=== PATIENT | male | born 1965 | race Caucasian/White ===

== ENCOUNTER 2017-06-07 22:09 | Emergency (ER) | payer SELFPAY ==
[2017-06-07] MEDS ORDERED: LIDOCAINE 1% INJ-PF (10 MG/ML) 30 ML SDV INJ ONE ×2 (22:18→23:31)
[2017-06-07] MEDS ORDERED: TETANUS/DIPHTHERIA TOX-ADULT 0.5 ML SYR (>=7YO) IM ONE (22:18)
--- NOTE | 2017-06-07 22:18 | ER Document Report ---
Addendum entered and electronically signed by MURRYA KHAN 06/08/17 01:14: Past Medical History - General Information source: Patient - Social History Smoking Status: Current Every Day Smoker Cigarette use (# per day): Yes Frequency of alcohol use: None Drug Abuse: None Lives with: Family Family History: Reviewed & Not Pertinent - Medical History Medical History: Negative Surgical Hx: Negative Review of Systems - Review of Systems Constitutional: No symptoms reported EENT: See HPI, Eye pain Cardiovascular: No symptoms reported Respiratory: No symptoms reported Gastrointestinal: No symptoms reported Genitourinary: No symptoms reported Male Genitourinary: No symptoms reported Musculoskeletal: No symptoms reported Skin: No symptoms reported Hematologic/Lymphatic: No symptoms reported Neurological/Psychological: See HPI, Headaches. denies: Lost consciousness -: Yes All other systems reviewed and negative Physical Exam - Vital signs Vitals: Temp Pulse Resp BP Pulse Ox 98.4 F 113 H 18 149/92 H 95 06/07/17 22:06/07/17 22:06/07/17 22:06/07/17 22:06/07/17 22:17 - Notes Notes: Physical Exam: General: Alert, appears intoxicated. HEENT: Normocephalic. PERRL. Extraocular movements intact. Oropharynx clear. Deep, wide, gaping 2cm laceration superior to left orbit. Left sided scleral hematoma. Neck: Supple. Non-tender. Respiratory: No respiratory distress. Clear and equal breath sounds bilaterally. Cardiovascular: Regular rate and rhythm. Abdominal: Normal Inspection. Non-tender. No distension. Normal Bowel Sounds. Back: Non-tender. No deformity or step off. Extremities: Moves all four extremities. Upper extremities: Normal inspection. Normal ROM. Lower extremities: Normal inspection. No edema. Normal ROM. Neurological: Normal cognition. AAOx4. Normal speech. Psychological: Normal affect. Normal Mood. Skin: Warm. Dry. Normal color. Addendum entered and electronically signed by MURRAY KHAN 06/08/17 00:22: History of Present Illiness - HPI Note: Patient is a 52-year-old male who presents to the emergency department today secondary to falling episodes. Patient states that he drank a few beers prior to this and he was walking outside to use the restroom when he fell because he did not think the threshold was as big as it was and he hit his head on some brick stairs. Patient states he felt "woozy" when standing up. Patient has a laceration above his left eyebrow. Patient denies any LOC. Original Note: ED General - General Stated Complaint: FALL HEAD LACERATION Time Seen by Provider: 06/07/17 22:16 - Related Data Allergies/Adverse Reactions: quetiapine [From Seroquel] Allergy (Verified 06/07/17 22:20) Past Medical History - Social History Smoking Status: Never Smoker Family History: Reviewed & Not Pertinent - Vital signs Vitals: Temp Pulse Resp BP Pulse Ox 98.4 F 113 H 18 149/92 H 95 06/07/17 22:17 06/07/17 22:17 06/07/17 22:17 06/07/17 22:17 06/07/17 22:17 - Vital Signs Vital signs: Temp Pulse Resp BP Pulse Ox 98.3 F 84 18 132/84 H 99 06/08/17 02:17 06/08/17 02:17 06/08/17 02:17 06/08/17 02:17 06/08/17 02:17 Procedures - Laceration/Wound Repair Left Face Time completed: 12:00 - Joe Montoya PA-C Wound length (cm): 2 Wound's Depth, Shape: Superficial, Linear Laceration pre-procedure: Sterile PPE donned, Sterile drapes applied, Other - chlorhexadine Anesthetic type: 1% Lidocaine Volume Anesthetic (mLs): 4 Wound explored: Clean, No foreign body removed Irrigated w/ Saline (mLs): 30 Wound Debrided: Minimal Wound Repaired With: Sutures Suture Size/Type: 6:0, Nylon Number of Sutures: 6 Layer Closure?: No Post-procedure wound care: Sterile dressing applied Post-procedure NV exam normal: Yes Complications: No Discharge - Discharge Clinical Impression: Fall, 5.0 cm left eyebrow laceration, Displaced closed maxillary fracture Condition: Stable Disposition: HOME, SELF-CARE Additional Instructions: Laceration Care Your laceration has been sutured to keep the skin edges aligned during healing. The time of suture removal depends on the nature and location of your cut. Please follow the care instructions the doctor has outlined for you and return for further care, according to the schedule you've been given. Keep the wound and dressing clean. Unless you were told otherwise, you may shower daily, blotting the wound dry with a clean, unused towel. At other times, If the dressing gets wet or blood soaked, remove it and blot the wound dry, then reapply a new dressing. Unless you were instructed otherwise, dressings should be changed at least daily. If any signs of infection occur (swelling, redness, increasing tenderness, red streaks, tender lumps in the armpit or groin above the laceration, or fever) , see the doctor immediately. Fracture maxilla You have a fracture. The typical broken bone requires only protection and sufficient time for healing. "Setting" is necessary only if the bones are crooked or out of position. The physician will re-assess you periodically to make certain that the bone heals without complications. It's important that you follow the instructions given you. The initial treatment is immobilization, elevation of the injury, and cold packs. Not all fractures require a cast. Depending on the location and type of fracture, immobilization may consist of a splint, cast, sling, bulky dressing , or simply rest. The length of time required for healing depends on the location and type of fracture, and on the age of the patient. The treatment plan the physician has outlined for you is customized to your fracture and health condition. Call the doctor or return at once if pain becomes severe, or if severe swelling or numbness develop. I have contacted an ear nose and throat doctor at [facility] in [place] who states that he will see you in follow-up. You are to call the office at [phone] on Saturday to be seen in follow-up on Saturday. Their address is [address] [place] [address] return to emergency department sooner for increasing worsening or new symptoms Scribe Attestation: 06/08/17 01:39 I personally performed the services described in the documentation reviewed the documentation recorded by my scribe in my presence and it accurately and completely records my words and actions (NED HENRIQUEZ)
--- NOTE | 2017-06-07 22:56 | RADIOLOGY REPORT (SQ) ---
EXAM DESCRIPTION: CT HEAD WITHOUT COMPLETED DATE/TIME: 06/07/2017 10:48 pm REASON FOR STUDY: fall etoh COMPARISON: None. TECHNIQUE: Axial images acquired through the brain without intravenous contrast. Images reviewed wi th bone, brain and subdural windows. Images stored on PACS. All CT scanners at this facility use dose modulation, iterative reconstruction, and/or weight based d osing when appropriate to reduce radiation dose to as low as reasonably achievable (ALARA). [facility]: Dose Right [facility]: CareDose [facility]: Dose Right [facility]: Teradose 4D [facility]: Your Policy Manager RADIATION DOSE: mGy. LIMITATIONS: None. FINDINGS: VENTRICLES: Normal size and contour. CEREBRUM: No masses. No hemorrhage. No midline shift. No evidence for acute infarction. Normal gra y/white matter differentiation. No areas of low density in the white matter. CEREBELLUM: No masses. No hemorrhage. No alteration of density. No evidence for acute infarction. EXTRAAXIAL SPACES: No fluid collections. No masses. ORBITS AND GLOBE: No intra- or extraconal masses. Normal contour of globe without masses. CALVARIUM: No fracture. PARANASAL SINUSES: Diffuse paranasal sinus mucosal thickening most notably involving the ethmoid and maxillary sinuses. No air-fluid levels. SOFT TISSUES: No mass or hematoma. OTHER: No other significant finding. IMPRESSION: CHRONIC PARANASAL SINUS DISEASE. OTHERWISE UNREMARKABLE NONCONTRAST CT HEAD. COMMENT: Quality ID # 436: Final reports with documentation of one or more dose reduction techniques (e.g., Automated exposure control, adjustment of the mA and/or kV according to patient size, use of iterative reconstruction technique) TECHNICAL DOCUMENTATION: JOB ID: [id number] [employer]- All Rights Reserved
--- NOTE | 2017-06-07 23:15 | RADIOLOGY REPORT (SQ) ---
EXAM DESCRIPTION: CHEST PA/LAT COMPLETED DATE/TIME: 06/07/2017 11:04 pm REASON FOR STUDY: fall COMPARISON: None. EXAM PARAMETERS: NUMBER OF VIEWS: two views TECHNIQUE: Digital Frontal and Lateral radiographic views of the chest acquired. RADIATION DOSE: NA LIMITATIONS: none FINDINGS: LUNGS AND PLEURA: No opacities, masses or pneumothorax. No pleural effusion. MEDIASTINUM AND HILAR STRUCTURES: No masses or contour abnormalities. HEART AND VASCULAR STRUCTURES: Heart normal size. No evidence for failure. BONES: No acute findings. HARDWARE: None in the chest. OTHER: No other significant finding. IMPRESSION: NO SIGNIFICANT RADIOGRAPHIC FINDING IN THE CHEST. TECHNICAL DOCUMENTATION: JOB ID: [id number] [employer]- All Rights Reserved
--- NOTE | 2017-06-07 23:17 | RADIOLOGY REPORT (SQ) ---
EXAM DESCRIPTION: CT CERVICAL SPINE WITHOUT COMPLETED DATE/TIME: 06/07/2017 10:57 pm REASON FOR STUDY: fall etoh COMPARISON: None. TECHNIQUE: Axial images acquired through the cervical spine without intravenous contrast. Images re viewed with lung, soft tissue and bone windows. Reconstructed coronal and sagittal MPR images review ed. Images stored on PACS. All CT scanners at this facility use dose modulation, iterative reconstruction, and/or weight based d osing when appropriate to reduce radiation dose to as low as reasonably achievable (ALARA). [facility]: Dose Right [facility]: CareDose [facility]: Dose Right [facility]: Teradose 4D [facility]: [employer] RADIATION DOSE: Up-to-date CT equipment and radiation dose reduction techniques were employed. CTDIv ol: 17.4 mGy. DLP: 396 mGy-cm. mGy. LIMITATIONS: None. FINDINGS: ALIGNMENT: Anatomic. MINERALIZATION: Normal. VERTEBRAL BODIES: No fractures or dislocation. DISCS: Multilevel disc space narrowing with osteophytes. FACETS, LATERAL MASSES, POSTERIOR ELEMENTS: Facet arthropathy. No fractures. No dislocation. No ac [place] findings. HARDWARE: None in the spine. VISUALIZED RIBS: No fractures. LUNG APICES AND SOFT TISSUES: No significant or acute findings. OTHER: No other significant finding. IMPRESSION: CHRONIC DEGENERATIVE CHANGES. NO ACUTE FINDINGS. TECHNICAL DOCUMENTATION: JOB ID: [id number] Quality ID # [id number]: Final reports with documentation of one or more dose reduction techniques (e.g., Au tomated exposure control, adjustment of the mA and/or kV according to patient size, use of iterative reconstruction technique) 2010 [employer]- All Rights Reserved
--- NOTE | 2017-06-07 23:21 | RADIOLOGY REPORT (SQ) ---
EXAM DESCRIPTION: CT FACIAL AREA WITHOUT COMPLETED DATE/TIME: 06/07/2017 10:57 pm REASON FOR STUDY: fall etoh COMPARISON: None. TECHNIQUE: Noncontrasted images through the facial bones and orbits windowed for bone and soft tissu e. Additional coronal and sagittal reconstructed images reviewed. All images stored on PACS. All CT scanners at this facility use dose modulation, iterative reconstruction, and/or weight based d osing when appropriate to reduce radiation dose to as low as reasonably achievable (ALARA). [facility]: Dose Right [facility]: CareDose [facility]: Dose Right [facility]: Teradose 4D [facility]: [employer] RADIATION DOSE: Up-to-date CT equipment and radiation dose reduction techniques were employed. CTDIv ol: 30.4 mGy. DLP: 589 mGy-cm. mGy. LIMITATIONS: None. FINDINGS: FACIAL BONES: Possible minimally displaced fracture involving the anterior wall the left m axillary sinus seen on series 4, image 39. Facial bone structures otherwise intact. ORBITS: Intact. No fracture. Symmetric intact globes and retroorbital soft tissues. PARANASAL SINUSES: Diffuse mucosal thickening with maxillary sinus mucous retention cyst versus polyp s. Occluded ostiomeatal complexes. SOFT TISSUES: Soft tissue swelling involving the left face and forehead. INFERIOR BRAIN: Limited view. No acute findings. OTHER: No other significant finding. IMPRESSION: POSSIBLE MINIMALLY DISPLACED FRACTURE INVOLVING THE ANTERIOR WALL THE LEFT MAXILLARY SIN US WITH OVERLYING SOFT TISSUE SWELLING. REMAINING FACIAL BONE STRUCTURES ARE INTACT. CHRONIC PARANASAL SINUS DISEASE. TECHNICAL DOCUMENTATION: JOB ID: [id number] Quality ID # [id number]: Final reports with documentation of one or more dose reduction techniques (e.g., Au tomated exposure control, adjustment of the mA and/or kV according to patient size, use of iterative reconstruction technique) 2010 [employer]- All Rights Reserved
[2017-06-08 02:20] VITALS: BP 132/84
== END 2017-06-08 02:22 | disposition home or self-care (01) ==
LOC: ER 22:09
PROC: 0HQ1XZZ Repair Face Skin, External Approach (ICD-10-PCS; principal; 2017-06-07)
DX: S02.401A Maxillary fracture, unspecified side, initial encounter for closed fracture (principal); S01.112A Laceration without foreign body of left eyelid and periocular area, initial encounter; W19.XXXA Unspecified fall, initial encounter; Y93.89 Activity, other specified; Z88.8 Allergy status to other drugs, medicaments and biological substances
CPT/HCPCS: 99284; 71020; 70450; 70486; 72125; 12011; J3490

== ENCOUNTER 2017-07-14 15:38 | Inpatient (IN) | payer SELFPAY ==
[2017-07-14 16:20] LABS: ABSOLUTE EOSINOPHILS # (AUTO) 0.1 10^3/uL (0.0-0.6); ABSOLUTE LYMPHOCYTES (AUTO) 1.2 10^3/uL (0.5-4.7); ABSOLUTE MONOCYTES (AUTO) 0.3 10^3/uL (0.1-1.4); BASOPHILS % (AUTO) 0.9 % (0-2); EOSINOPHILS % (AUTO) 2.4 % (0-6); HEMATOCRIT 40.5 % (37.9-51.0); HEMOGLOBIN 13.9 g/dL (13.5-17.0); HGB HCT DIFFERENCE 1.2; LYMPHOCYTES % (AUTO) 45.9 % (13-45); MEAN CORPUSCULAR HEMOGLOBIN 27.5 pg (27.0-33.4); MEAN CORPUSCULAR HGB CONC 34.4 g/dL (32.0-36.0); MEAN CORPUSCULAR VOLUME 80 fl (80-97); MONOCYTES % (AUTO) 11.8 % (3-13); RED BLOOD COUNT 5.07 10^6/uL (4.35-5.55); WHITE BLOOD COUNT 2.6 10^3/uL (4.0-10.5)
[2017-07-14 16:26] LABS: APPEARANCE,URINE CLEAR; BILIRUBIN,URINE NEGATIVE (NEGATIVE); GLUCOSE, URINE 150 mg/dL (NEGATIVE); KETONES,URINE NEGATIVE (NEGATIVE); LEUKOCYTE ESTERASE,URINE NEGATIVE (NEGATIVE); NITRITE,URINE NEGATIVE (NEGATIVE); PROTEIN,URINE 30 mg/dL (NEGATIVE); URINE SPECIFIC GRAVITY 1.019
[2017-07-14 16:40] LABS: ALANINE AMINOTRANSFERASE 73 U/L (21-72); ALBUMIN 3.3 g/dL (3.5-5.0); ALKALINE PHOSPHATASE 289 U/L (38-126); ANION GAP 14 (5-19); ASPARTATE AMINO TRANSFERASE 143 U/L (17-59); BILIRUBIN,DIRECT 1.9 mg/dL (0.0-0.4); BILIRUBIN,TOTAL 3.6 mg/dL (0.2-1.3); BLOOD UREA NITROGEN 7 mg/dL (7-20); CALCIUM 8.5 mg/dL (8.4-10.2); CARBON DIOXIDE 25 mmol/L (22-30); CHLORIDE 107 mmol/L (98-107); CREATININE RESULT 0.68 mg/dL (0.52-1.25); GLUCOSE 255 mg/dL (75-110); POTASSIUM 4.2 mmol/L (3.6-5.0); SODIUM 146.3 mmol/L (137-145)
[2017-07-14 16:49] LABS: URINE BARBITURATES SCREEN NEGATIVE; URINE METHADONE SCREEN NEGATIVE; URINE OPIATES LOW NEGATIVE; URINE PHENCYCLIDINE SCREEN NEGATIVE
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
--- NOTE | 2017-07-14 16:54 | EKG REPORT ---
SEVERITY:- ABNORMAL ECG - SINUS TACHYCARDIA PROBABLE LEFT ATRIAL ABNORMALITY LEFT VENTRICULAR HYPERTROPHY ANTERIOR ST ELEVATION, PROBABLY DUE TO LVH BORDERLINE PROLONGED QT INTERVAL : Confirmed by: Kristen De Leon MD 14-Jul-2017 16:54:13
[2017-07-14 16:56] LABS: ALCOHOL 322 mg/dL (NONE DETECTED)
--- NOTE | 2017-07-14 17:17 | ER Document Report ---
ED Substance Abuse / Acc. OD - General Mode of Arrival: Medic Information source: Patient <JAMISON MARSH - Last Filed: 07/14/17 19:28> <KATEKIRAROD - Last Filed: 07/15/17 06:20> - General Chief Complaint: ETOH Abuse Stated Complaint: DETOX Time Seen by Provider: 07/14/17 15:44 Notes: 52-year-old chronic daily alcoholic was drinking and sleeping at the [facility] in [facility] waiting for a bus to take him to [place]. He called EMS because he decided today that he needed to stop drinking alcohol. He is not depressed or suicidal. He is a known diabetic and does not take his diabetes medication. The last time he had liver enzymes in 2011 when he was incarcerated they were normal. He has no chest pain, shortness of breath , abdominal pain. No vomiting or diarrhea. No tremors. Stable walking and conversing, eating meal. (JAMISON MARSH) - Related Data Allergies/Adverse Reactions: quetiapine [From Seroquel] Allergy (Verified 06/07/17 22:20) Past Medical History - General Information source: Patient, [facility] Records - Social History Smoking Status: Current Every Day Smoker Chew tobacco use (# tins/day): No Frequency of alcohol use: Heavy Drug Abuse: None Family History: Reviewed & Not Pertinent - Past Medical History Cardiac Medical History: Reports: Hx Hypertension Past Surgical History: Reports: Hx Abdominal Surgery, Hx Orthopedic Surgery - Knee <JAMISON MARSH - Last Filed: 07/14/17 19:28> Review of Systems - Review of Systems Constitutional: No symptoms reported EENT: No symptoms reported Cardiovascular: No symptoms reported Respiratory: No symptoms reported Gastrointestinal: No symptoms reported Genitourinary: No symptoms reported Male Genitourinary: No symptoms reported Musculoskeletal: No symptoms reported Skin: No symptoms reported Hematologic/Lymphatic: No symptoms reported Neurological/Psychological: See HPI <JAMISON MARSH - Last Filed: 07/14/17 19:28> Physical Exam - Vital signs Interpretation: Normal - General General appearance: Appears well, Alert - HEENT Head: Normocephalic, Atraumatic Eyes: Normal. No: Scleral icterus Conjunctiva: Injected Pupils: PERRL Neck: Supple. No: Lymphadenopathy - Respiratory Respiratory status: No respiratory distress Chest status: Nontender Breath sounds: Normal Chest palpation: Normal - Cardiovascular Rhythm: Regular Heart sounds: Normal auscultation Murmur: No - Abdominal Inspection: Normal Distension: No distension Bowel sounds: Normal Tenderness: Nontender. No: Tender Organomegaly: No organomegaly. No: Hepatomegaly - Back Back: Normal, Nontender. No: CVA tenderness - Extremities General upper extremity: Normal inspection, Nontender, Normal color, Normal ROM , Normal temperature General lower extremity: Normal inspection, Nontender, Normal color, Normal ROM , Normal temperature, Normal weight bearing. No: Figueroa's sign - Neurological Neuro grossly intact: Yes Cognition: Normal Orientation: AAOx4 [place] Coma Scale Eye Opening: Spontaneous [place] Coma Scale Verbal: Oriented [place] Coma Scale Motor: Obeys Commands [place] Coma Scale Total: 15 Speech: Normal Motor strength normal: LUE, RUE, LLE, RLE Sensory: Normal - Psychological Associated symptoms: Normal affect, Normal mood - Skin Skin Temperature: Warm Skin Moisture: Dry Skin Color: Normal Skin irregularity: negative: Rash <JAMISON MARSH - Last Filed: 07/14/17 19:28> - Vital signs Vitals: Temp Pulse Resp 98.8 F 110 H 20 07/14/17 15:47 07/14/17 15:47 07/14/17 15:47 Course - Laboratory Result Diagrams: 07/14/17 16:00 07/14/17 16:00 <JAMISON MARSH - Last Filed: 07/14/17 19:28> - Laboratory Result Diagrams: 07/14/17 16:00 07/14/17 16:00 <ROD LOVE - Last Filed: 07/15/17 06:20> - Re-evaluation Re-evalutation: 07/14/17 17:16 pt seen by Azucena from [facility], [facility] in [place] has no beds for detox today. Pt can call mobile crisis or walk in port in the [facility]. Pt states he is suypposed to take depression medication and DM2 meds. He wants to catch a bus to [place] to see his daughter and get off alcohol again. He is not suicidal. 07/14/17 17:[address] blackwell, pt has to stay in ER until ETOH is 80, redraw the etoh level at 0400, keep to am since he is homeless with ativan PRN 07/14/17 18:07 pt is willing to stay in the ER during the night, starting to have some tremors ativan 1mg ordered and q2hp. saline lock in place. will transfer care to Rod SABA at 1900. 07/14/17 19:28 care transferred to Rod SABA> (JAMISON MARSH) 07/14/17 23:39 When I was introduced to patient he did state that he has gone "cold turkey" without difficulty. Patient reevaluated again, sleeping peacefully. Blood draw is still pending, vital signs unremarkable, patient is not tachycardic on my exam. Patient vomited, QT prolongation was noted on EKG, he was given a dose of Ativan IV, he is slightly tremulous, patient will be placed on a monitor. Concerned that he might be developing bad withdrawal symptoms. Patient has now become tachycardic, I reevaluated him at bedside and he is becoming slightly delirious, patient be given thiamine, he will require admission. Discussed with Dr. Guaman, will give 20 mg valium PO. Called and spoke with Dr. Barnett, internal medicine, patient will be admitted to the ICU. (ROD LOVE) - Vital Signs Vital signs: Temp Pulse Resp BP Pulse Ox 98.0 F 109 H 18 152/100 H 97 07/15/17 05:51 07/15/17 05:51 07/15/17 05:51 07/15/17 05:51 07/15/17 05:51 - Laboratory Laboratory results interpreted by me: 07/14/17 07/14/17 07/14/17 16:00 16:00 16:00 WBC 2.6 L RDW 19.0 H Plt Count 67 L Seg Neutrophils % 39.0 L Lymphocytes % 45.9 H Absolute Neutrophils 1.0 L Sodium 146.3 H Glucose 255 H Total Bilirubin 3.6 H Direct Bilirubin 1.9 H AST 143 H ALT 73 H Alkaline Phosphatase 289 H Albumin 3.3 L Urine Protein 30 H Urine Glucose (UA) 150 H Urine Blood MODERATE H Urine Urobilinogen 4.0 H Salicylates < 1.0 L Acetaminophen < 10 L Serum Alcohol 322 H* Discharge <JAMISON MARSH - Last Filed: 07/14/17 19:28> - Discharge Admitting Provider: Hospitalist Unit Admitted: ICU <ROD LOVE - Last Filed: 07/15/17 06:20> - Discharge Clinical Impression: Hyperglycemia, Alcoholism Alcohol intoxication Qualifiers: Complication of substance-induced condition: with unspecified complication Qualified Code(s): F10.929 - Alcohol use, unspecified with intoxication, unspecified Condition: Serious Disposition: ADMITTED INPATIENT
[2017-07-14] MEDS ORDERED: LORAZEPAM 1 MG TABLET PO PRN ×2 (17:45→18:06)
[2017-07-14] MEDS ORDERED: LORAZEPAM 1 MG TABLET PO ONE ×2 (18:05→18:51)
[2017-07-15] MEDS ORDERED: LORAZEPAM INJ 2 MG/1 ML VIAL IV ONE ×2 (00:24→01:25)
[2017-07-15] MEDS ORDERED: DIAZEPAM 5 MG TABLET PO ONE ×2 (05:47→08:15)
[2017-07-15] MEDS ORDERED: THIAMINE HCL 100 MG in NORMAL SALINE 50 ML IV ONE (05:48)
[2017-07-15] MEDS ORDERED: NORMAL SALINE 1000 ML 1,000 ML IV ONE (05:48)
[2017-07-15 06:08] LABS: ADD ON TESTING BLD IN LAB ACKNOWLEDGE
[2017-07-15 06:26] LABS: PROTHROMBIN TIME 16.5 SEC (11.4-15.4)
[2017-07-15 06:27] LABS: PARTIAL THROMBOPLASTIN TIME 40.1 SEC (23.5-35.8)
[2017-07-15] MEDS ORDERED: THIAMINE HCL INJ 200 MG/2 ML VIAL ONE (06:32)
[2017-07-15 06:36] LABS: MAGNESIUM 1.7 mg/dL (1.6-2.3)
[2017-07-15 06:37] LABS: HEMATOCRIT 40.7 % (37.9-51.0); HEMOGLOBIN 13.9 g/dL (13.5-17.0); MEAN CORPUSCULAR HEMOGLOBIN 27.5 pg (27.0-33.4); MEAN CORPUSCULAR HGB CONC 34.2 g/dL (32.0-36.0); MEAN CORPUSCULAR VOLUME 81 fl (80-97); RED BLOOD COUNT 5.06 10^6/uL (4.35-5.55)
[2017-07-15 06:45] LABS: ALANINE AMINOTRANSFERASE 79 U/L (21-72); ALBUMIN 3.6 g/dL (3.5-5.0); ALKALINE PHOSPHATASE 365 U/L (38-126); ANION GAP 13 (5-19); ASPARTATE AMINO TRANSFERASE 145 U/L (17-59); BILIRUBIN,TOTAL 3.8 mg/dL (0.2-1.3); BLOOD UREA NITROGEN 8 mg/dL (7-20); CALCIUM 8.6 mg/dL (8.4-10.2); CARBON DIOXIDE 25 mmol/L (22-30); CHLORIDE 107 mmol/L (98-107); CREATININE RESULT 0.59 mg/dL (0.52-1.25); GLUCOSE 167 mg/dL (75-110); POTASSIUM 3.6 mmol/L (3.6-5.0); SODIUM 144.9 mmol/L (137-145); TOTAL PROTEIN 7.5 g/dL (6.3-8.2)
[2017-07-15] MEDS ORDERED: DEXTROSE 50%-WATER 25 GM/50 ML DISP.SYRIN IV PRN ×2 (07:32)
[2017-07-15] MEDS ORDERED: GLUCAGON,HUMAN RECOMB 1 MG INJ IM PRN (07:32)
[2017-07-15] MEDS ORDERED: DEXTROSE 40% GEL 15 GM TUBE PO PRN ×2 (07:32)
[2017-07-15] MEDS ORDERED: ACETAMINOPHEN 650 MG SUPP.RECT PR PRN (07:34)
[2017-07-15 07:37] LABS: BASOPHILS % (MANUAL) 0 % (0-2); EOSINOPHILS % (MANUAL) 2 % (0-6); LYMPHOCYTES % (MANUAL) 24 % (13-45); TOTAL CELLS COUNTED 50
[2017-07-15 07:38] LABS: ANISOCYTOSIS 2+; MICROCYTOSIS SLIGHT
[2017-07-15 07:40] LABS: WHITE BLOOD COUNT 1.8 10^3/uL (4.0-10.5)
--- NOTE | 2017-07-15 07:41 | RADIOLOGY REPORT (SQ) ---
EXAM: NONCONTRAST BRAIN CT EXAMINATION. CLINICAL INDICATION: Left head injury. Left scalp abrasion. Intoxicated. COMPARISON: None. TECHNIQUE: Using low dose helical CT technique, thin section axial images were performed through the brain without the administration of intravenous or subarachnoid contrast material. FINDINGS: Motion artifact degrades fine evaluation of the brainstem and cerebellum. Left scalp hematoma without underlying fracture or associated radiopaque soft tissue foreign bodies. Brain volume appears normal. No diffuse brain swelling or brain herniation. No hydrocephalus. No subdural or epidural hematomas. No large subacute brain infarction. No parenchymal brain hemorrhage or evidence of intracranial mass lesion. Cerebral white matter is grossly normal. Caudate heads, lentiform nuclei, thalami and internal capsules are normal. Bones of the skull and skull base are normal. The middle ears and mastoid air cells are clear. Moderate chronic ethmoid, maxillary sphenoid and frontal sinusitis without extension into the orbits or skull. IMPRESSION: 1. Moderate chronic pansinusitis. Otherwise, normal noncontrast brain CT examination.
--- NOTE | 2017-07-15 07:44 | RADIOLOGY REPORT (SQ) ---
EXAM: NONCONTRAST CERVICAL SPINE CT EXAMINATION. CLINICAL INDICATION: Injury. Intoxicated. COMPARISON: None. TECHNIQUE: Using low-dose helical technique, thin section axial images were performed through the cervical spine without the administration of intravenous or subarachnoid contrast material. CT sagittal coronal reconstructions were also obtained. FINDINGS: Multilevel degenerative disease throughout the cervical spine in the preodontoid space. Partially visualized severe atherosclerotic calcification in the downstream vertebral arteries. No fractures, spondylolisthesis or facet joint dislocation. No hemorrhage in the spinal canal. Precervical soft tissue thickness is normal. The odontoid process, preodontoid space and C1 vertebral body are intact. The occipital condyles are intact. Partially visualized bony structures of the skull base appear normal. Concentric atherosclerotic calcifications in the bilateral carotid bulbs. Soft tissue structures of the neck are grossly normal on this noncontrast examination. IMPRESSION: 1. Multilevel degenerative disease. No fractures or dislocations.
[2017-07-15] MEDS ORDERED: ENALAPRILAT DIHYDRATE INJ/PF 1.25 MG/1 ML SDV IV PRN (07:49)
[2017-07-15] MEDS ORDERED: POTASSI CL 20 MEQ/50 ML RIDER 20 MEQ/50 ML RTUPB IV ONE (08:00)
--- NOTE | 2017-07-15 08:01 | PDOC H&P ---
History of Present Illness Admission Date/PCP: 07/15/17 06:19 Primary CARE provider none Patient complains of: Alcoholism History of Present Illness: GUERA MENDEZ is a 52 year old reportedly homeless male with ongoing alcohol abuse who was actually initially seen in the emergency room the afternoon of the and noted to be acutely intoxicated. Patient has been discussed with emergency room PA who evaluated the patient. Patient is sedated from medication treating his alcohol withdrawal symptoms and is able to provide no history whatsoever in terms of acute or chronic events, review of systems, personal habits, family history, etc. No friends or family are present. No old inpatient records available for review. Patient was reportedly in [facility] waiting for a bus to take him to family in [place]. Called EMS, deciding that yesterday he was going to stop drinking. Initial plans by the ER staff were to let his serum alcohol wear off and then discharge him. However, early this morning, patient began exhibiting katarzyna withdrawal symptoms and decision was made to contact the hospitalist service for admission. When first seen in the emergency room, he denied chest pain shortness of breath abdominal pain, vomiting or diarrhea. He was noted to be stable walking and conversing, and eating a meal without tremors. No further information available this point in time. Dictation via voice recognition software. Laboratory results are listed in [employer] and are reviewed. X-ray summary results are listed below, with full report(s) reviewed. EKG reviewed. No prior EKG available for comparison. Social history/personal habits: Reportedly homeless, with a current every day smoking habit, and heavy alcohol use. Reportedly no drug abuse. Information from ER records. No further information available this point in time. Allergies/adverse reactions are listed in [employer] and are reviewed. Home medications initially autopopulated into [employer] may not accurately reflect patient's true medications, dosages, and/or frequencies. refractory technician to reconcile medications. Unfortunately, patient not able to provide any information related to medications/dosages/frequencies. REVIEW OF SYSTEMS: See history and present illness. No further information available this point in time. PHYSICAL EXAMINATION: 6 feet tall. 104.5 kg. BMI 31.2 kg/m. Temperature 98. Pulse 109 and regular. Blood pressure 155/100. Respirations are 14 and unlabored. 98% saturation on room air. Slightly obese but also somewhat stocky, somewhat chronically ill-appearing male who appears a bit older than his stated age. Somnolent. Makes very brief slight attempt to open eyes when name is called, but otherwise remains asleep. Maintaining airway well. Received sedation short time ago. Observed ambulating in the halls earlier in the morning. Skin is warm and dry. No grossly obvious evidence of rash in areas of skin examined. No subcutaneous nodules palpated. Tattoos. ENT: Hearing difficult to adequately evaluate due to his current status. No vences sign. Approximately a 2 x 4 cm superficial abrasion, left frontal scalp. Appears acute. No active bleeding. No evidence of infection. Eyes: No scleral icterus. Pupils equal and reactive to light at 4 mm. [place] conjunctivae. No raccoon eyes. Neck is nontender to palpation. Midline trachea. No palpable thyroid nodule mass enlargement or tenderness. Lymphatic: No palpable cervical or clavicular nodes. Neck and lymphatic exams limited by patient body habitus. Psychiatric: Not able to adequately evaluate due to his current status. See above comments. Lungs: Auscultation reveals clear and equal breath sounds bilaterally. No use of accessory respiratory muscles. Cardiovascular: Heart regular rate and rhythm, without gallop murmur or rub. No carotid or abdominal aortic bruits. No ankle or pedal edema. Palpable radial and dorsalis pedis pulses. Abdomen:soft slightly distended nontender with positive bowel sounds. Unable to adequately evaluate abdomen for masses or organomegaly due to distention. Extremities: Hands and feet are warm and dry. No calf tenderness to compression. No grossly obvious visual evidence of calf swelling. Gentle manipulation of upper and lower extremities fails to reveal any obvious evidence of injury or instability to involved major joints. Neuro: Cranial Nerves cannot be adequately evaluated due to his current status. Light touch cannot be adequately evaluated due to his current status. Does not follow request for basic testing of major muscle groups upper and lower extremities. Patellar reflexes absent. Absent Babinski. No nystagmus. No ankle clonus. Past Medical History Past Medical History: Information per ER records. Patient unable to provide any information himself. Cardiac Medical History: Reports: Hypertension Endocrine Medical History: Reports: Diabetes Mellitus Type 2 Psychiatric Medical History: Reports: Alcohol Dependency, Depression, Tobacco Dependency Past Surgical History Past Surgical History: Information per ER records. Patient unable to provide any information himself. Past Surgical History: Reports: Orthopedic Surgery - Knee Social History Information Source: Emergency [facility]nel, [facility], [facility]1983 Records Smoking Status: Current Every Day Smoker Frequency of Alcohol Use: Heavy - Advance Directive Resuscitation Status: Full Code Surrogate healthcare decision maker:: Uncertain at this point in time. Family History Family History: Reviewed & Not Pertinent Parental Family History Reviewed: No - Patient not able to provide any information. Children Family History Reviewed: No - Patient not able to provide any information. Sibling(s) Family History Reviewed.: No - Patient not able to provide any information. Medication/Allergy Home Medications: Ibuprofen [Motrin 800 mg Tablet] 800 mg PO QAM 07/16/17 Allergies/Adverse Reactions: quetiapine [From Seroquel] Allergy (Verified 06/07/17 22:20) Physical Exam Vital Signs: Temp Pulse Resp BP Pulse Ox 98.0 F 109 H 14 158/101 H 97 07/15/17 05:51 07/15/17 05:51 07/15/17 07:01 07/15/17 07:01 07/15/17 07:01 Results Laboratory Results: 07/15/17 06:20 Ammonia 100.1 H Impressions: Head CT 07/15/17 00:00 IMPRESSION: 1. Moderate chronic pansinusitis. Otherwise, normal noncontrast brain CT examination. Assessment & Plan - Diagnosis (1) Alcohol dependence with acute alcoholic intoxication and delirium Is this a current diagnosis for this admission?: Yes Plan: Alcohol withdrawal protocol, including parenteral Ativan, and daily banana bag. Dietary consult. With patient reportedly homeless, discharge planning consult also. Knee high SCDs for DVT prophylaxis; due to thrombocytopenia, will forego Lovenox or heparin at this point in time. Time spent in evaluation and management of patient: 58 critical care minutes. (2) Elevated LFTs Is this a current diagnosis for this admission?: Yes Plan: Follow-up chemistry. (3) Increased ammonia level Is this a current diagnosis for this admission?: Yes Plan: Lactulose enema every 6 hours. (4) Neutropenia Qualifiers: Neutropenia type: unspecified Qualified Code(s): D70.9 - Neutropenia, unspecified Is this a current diagnosis for this admission?: Yes Plan: Mild. Protective precautions. Follow-up CBC with differential. (5) Scalp abrasion Qualifiers: Encounter type: initial encounter Qualified Code(s): S00.01XA - Abrasion of scalp, initial encounter Is this a current diagnosis for this admission?: Yes Plan: CT scan of brain without contrast, along with CT scan of cervical spine without contrast. Hard cervical collar. C-spine precautions; logroll only. Above discussed with nursing staff, and orders entered into electronic health record. (6) Thrombocytopenia Is this a current diagnosis for this admission?: Yes Plan: Likely secondary to his alcohol abuse. Follow-up CBC with differential. (7) Diabetes mellitus type 2 in obese Is this a current diagnosis for this admission?: Yes Plan: N.p.o. at the present time. Accu-Cheks with appropriate sliding scale coverage. Resume home medications as appropriate once these have been determined and reviewed. - Time Critical Time spent with patient: 35 or more minutes Medications reviewed and adjusted accordingly: No - Patient not able to provide any information. Anticipated discharge: Other Within: Other - Inpatient Certification Based on my medical assessment, after consideration of the patient's comorbidities, presenting symptoms, or acuity I expect that the services needed warrant INPATIENT care.: Yes I certify that my determination is in accordance with my understanding of Medicare's requirements for reasonable and necessary INPATIENT services [42 CFR 412.3e].: Yes Medical Necessity: Significant Comorbidiites Make Outpatient Treatment Too Risky , Need Close Monitoring Due to Risk of Patient Decompensation, Need For IV Fluids, Need For Continuous Telemetry Monitoring, Risk of Complication if Not Cared For in Hospital, Risk of Diagnosis Which Will Require Inpatient Eval/Care/ Monitoring Post Hospital Care: D/C or Transfer Summary
[2017-07-15] MEDS ORDERED: LISINOPRIL 10 MG TABLET PO ONE ×2 (08:15→12:00)
--- NOTE | 2017-07-15 08:29 | RADIOLOGY REPORT (SQ) ---
EXAM DESCRIPTION: CHEST SINGLE VIEW COMPLETED DATE/TIME: 07/15/2017 8:17 am REASON FOR STUDY: alcohol withdrawal COMPARISON: None. EXAM PARAMETERS: NUMBER OF VIEWS: One view. TECHNIQUE: Single frontal radiographic view of the chest acquired. RADIATION DOSE: NA LIMITATIONS: None. FINDINGS: LUNGS AND PLEURA: No opacities, masses or pneumothorax. No pleural effusion. MEDIASTINUM AND HILAR STRUCTURES: No masses. Contour normal. HEART AND VASCULAR STRUCTURES: Mild cardiomegaly. Normal vasculature. BONES: No acute findings. HARDWARE: None in the chest. OTHER: No other significant finding. IMPRESSION: NO ACUTE RADIOGRAPHIC FINDING IN THE CHEST. TECHNICAL DOCUMENTATION: JOB ID: [id number]
[2017-07-15] MEDS: NORMAL SALINE 1000 ML 1,000 ML IV PRN (08:42)
[2017-07-15] MEDS: MAGNESIUM SULFATE/D5W 1 GM/100 ML RTUPB IV SCH ×2 (08:48→11:47)
[2017-07-15 09:39] LABS: ADD HIVPANEL? NO; HIV (1 AND 2) ANTIBODY NEGATIVE (NEGATIVE)
[2017-07-15] MEDS ORDERED: LACTULOSE SYRUP 20 GM/30 ML UDCUP PR SCH (12:00)
[2017-07-15] MEDS: FOLIC ACID 1 MG TABLET PO SCH (12:02)
[2017-07-15] MEDS: DIAZEPAM 5 MG TABLET PO SCH ×2 (12:03→18:55)
[2017-07-15] MEDS: THIAMINE HCL 100 MG TABLET PO SCH (12:03)
[2017-07-15 14:14] LABS: PATH REVIEW PATHOLOGIST REVIEWED
[2017-07-15] MEDS ORDERED: MAGNESIUM SULFATE/D5W 1 GM/100 ML RTUPB IV ONE (15:00)
[2017-07-15] MEDS ORDERED: INFLUENZA ADLT QUAD (36MOS+) 2017-18 VAC 0.5 ML SYR IM PRN (16:35)
[2017-07-15] MEDS ORDERED: NORMAL SALINE 1000 ML 1,000 ML with THIAMINE HCL 100 MG, MVI, ADULT NO.1 WITH VIT K 10 ... IV SCH ×4 (18:00)
[2017-07-15] MEDS: LACTULOSE SYRUP 20 GM/30 ML UDCUP PO SCH (18:55)
[2017-07-15] MEDS: LISINOPRIL 10 MG TABLET PO SCH (21:37)
[2017-07-15] MEDS ORDERED: LORAZEPAM INJ 2 MG/1 ML VIAL (TAPER DOSING) IV SCH (22:00)
[2017-07-15] MEDS: LORAZEPAM INJ 2 MG/1 ML VIAL IV SCH (23:06)
[2017-07-16] MEDS: DIAZEPAM 5 MG TABLET PO SCH ×4 (00:24→18:37)
[2017-07-16] MEDS: LACTULOSE SYRUP 20 GM/30 ML UDCUP PO SCH ×4 (00:24→18:36)
[2017-07-16 05:12] LABS: ABSOLUTE EOSINOPHILS # (AUTO) 0.1 10^3/uL (0.0-0.6); ABSOLUTE LYMPHOCYTES (AUTO) 0.5 10^3/uL (0.5-4.7); ABSOLUTE MONOCYTES (AUTO) 0.3 10^3/uL (0.1-1.4); ABSOLUTE NEUT (AUTO) 1.2 10^3/uL (1.7-8.2); BASOPHILS % (AUTO) 0.3 % (0-2); EOSINOPHILS % (AUTO) 3.2 % (0-6); HEMATOCRIT 41.2 % (37.9-51.0); HEMOGLOBIN 13.9 g/dL (13.5-17.0); HGB HCT DIFFERENCE 0.5; LYMPHOCYTES % (AUTO) 25.2 % (13-45); MEAN CORPUSCULAR HEMOGLOBIN 27.1 pg (27.0-33.4); MEAN CORPUSCULAR HGB CONC 33.9 g/dL (32.0-36.0); MEAN CORPUSCULAR VOLUME 80 fl (80-97); MONOCYTES % (AUTO) 13.1 % (3-13); RED BLOOD COUNT 5.14 10^6/uL (4.35-5.55); RED CELL DISTRIBUTION WIDTH 19.3 % (11.5-14.0); SEGMENTED NEUTROPHILS % (AUTO) 58.2 % (42-78); WHITE BLOOD COUNT 2.1 10^3/uL (4.0-10.5)
[2017-07-16 05:13] LABS: PROTHROMBIN TIME 16.9 SEC (11.4-15.4)
[2017-07-16 05:21] LABS: ALANINE AMINOTRANSFERASE 75 U/L (21-72); ALBUMIN 3.2 g/dL (3.5-5.0); ALKALINE PHOSPHATASE 313 U/L (38-126); ANION GAP 9 (5-19); ASPARTATE AMINO TRANSFERASE 122 U/L (17-59); BILIRUBIN,DIRECT 2.9 mg/dL (0.0-0.4); BILIRUBIN,TOTAL 5.4 mg/dL (0.2-1.3); BLOOD UREA NITROGEN 8 mg/dL (7-20); CARBON DIOXIDE 22 mmol/L (22-30); CHLORIDE 110 mmol/L (98-107); CREATININE RESULT 0.52 mg/dL (0.52-1.25); GLUCOSE 124 mg/dL (75-110); POTASSIUM 4.3 mmol/L (3.6-5.0); SODIUM 140.5 mmol/L (137-145); TOTAL PROTEIN 7.1 g/dL (6.3-8.2)
[2017-07-16] MEDS: LORAZEPAM INJ 2 MG/1 ML VIAL IV SCH (05:52)
[2017-07-16] MEDS: FOLIC ACID 1 MG TABLET PO SCH (11:06)
[2017-07-16] MEDS: LISINOPRIL 10 MG TABLET PO SCH ×2 (11:06→21:35)
[2017-07-16] MEDS: THIAMINE HCL 100 MG TABLET PO SCH (11:07)
[2017-07-16] MEDS: NORMAL SALINE 1000 ML 1,000 ML IV PRN ×2 (12:58→21:36)
[2017-07-16] MEDS ORDERED: LORAZEPAM INJ 2 MG/1 ML VIAL IV SCH (16:00)
[2017-07-16] MEDS ORDERED: HYDRALAZINE HCL INJ/PF 20 MG/1 ML SDV IV PRN (17:07)
--- NOTE | 2017-07-16 17:22 | PDOC PROGRESS REPORT ---
Subjective Progress Note for:: 07/16/17 Subjective:: Pt seen resting in bed comfortable. He reports feeling hungry and is frustrated at not being allowed to eat. Otherwise, he has no questions or concerns today. He remains quite somnolent with slurred speech at times. He denies MOURA, dizziness, chest pain, dyspnea, abd pain, nausea, vomiting, diarrhea, and constipation. ROS is otherwise negative. Physical Exam Vital Signs: Temp Pulse Resp BP Pulse Ox 97.7 F 109 H 20 174/112 H 99 07/16/17 11:47 07/16/17 11:47 07/16/17 11:47 07/16/17 11:47 07/16/17 11:47 Intake & Output 07/15/17 07/16/17 07/17/17 06:59 06:59 06:59 Intake Total 850 Output Total 3300 200 Balance -2450 -200 Weight 94.6 kg General appearance: PRESENT: no acute distress, well-developed, well-nourished Head exam: PRESENT: atraumatic, normocephalic Eye exam: PRESENT: conjunctiva pink, EOMI, PERRLA. ABSENT: scleral icterus Ear exam: PRESENT: normal external ear exam Mouth exam: PRESENT: moist, tongue midline Neck exam: ABSENT: carotid bruit, JVD, lymphadenopathy, thyromegaly Respiratory exam: PRESENT: clear to auscultation michelle, symmetrical, unlabored. ABSENT: rales, rhonchi, wheezes Cardiovascular exam: PRESENT: RRR. ABSENT: diastolic murmur, rubs, systolic murmur Pulses: PRESENT: normal dorsalis pedis pul Vascular exam: PRESENT: normal capillary refill GI/Abdominal exam: PRESENT: normal bowel sounds, soft, other - distended. ABSENT: distended, firm, guarding, mass, organolmegaly, rebound, tenderness Rectal exam: PRESENT: deferred Extremities exam: PRESENT: full ROM. ABSENT: calf tenderness, clubbing, pedal edema Musculoskeletal exam: PRESENT: full ROM Neurological exam: PRESENT: oriented to person, oriented to place, oriented to time, oriented to situation, CN II-XII grossly intact, other - Somnolent though easily aroused, slurred speech. ABSENT: motor sensory deficit Psychiatric exam: PRESENT: appropriate affect, normal mood. ABSENT: homicidal ideation, suicidal ideation Skin exam: PRESENT: dry, intact, warm. ABSENT: cyanosis, rash Results Laboratory Results: 07/16/17 04:53 07/16/17 04:53 07/16/17 07/16/17 07/16/17 04:53 04:53 04:53 WBC 2.1 L RBC 5.14 Hgb 13.9 Hct 41.2 MCV 80 MCH 27.1 MCHC 33.9 RDW 19.3 H Plt Count 45 L Seg Neutrophils % 58.2 Lymphocytes % 25.2 Monocytes % 13.1 H Eosinophils % 3.2 Basophils % 0.3 Absolute Neutrophils 1.2 L Absolute Lymphocytes 0.5 Absolute Monocytes 0.3 Absolute Eosinophils 0.1 Absolute Basophils 0.0 Sodium 140.5 Potassium 4.3 Chloride 110 H Carbon Dioxide 22 Anion Gap 9 BUN 8 Creatinine 0.52 Est GFR ( Amer) > 60 Est GFR (Non-Af Amer) > 60 Glucose 124 H Calcium 9.0 Magnesium Total Bilirubin 5.4 H AST 122 H ALT 75 H Alkaline Phosphatase 313 H Ammonia 117.7 H Total Protein 7.1 Albumin 3.2 L 07/16/17 04:53 WBC RBC Hgb Hct MCV MCH MCHC RDW Plt Count Seg Neutrophils % Lymphocytes % Monocytes % Eosinophils % Basophils % Absolute Neutrophils Absolute Lymphocytes Absolute Monocytes Absolute Eosinophils Absolute Basophils Sodium Potassium Chloride Carbon Dioxide Anion Gap BUN Creatinine Est GFR ( Amer) Est GFR (Non-Af Amer) Glucose Calcium Magnesium 2.0 Total Bilirubin AST ALT Alkaline Phosphatase Ammonia Total Protein Albumin Impressions: Cervical Spine CT 07/15/17 00:00 IMPRESSION: 1. Multilevel degenerative disease. No fractures or dislocations. Chest X-Ray 07/15/17 00:00 IMPRESSION: NO ACUTE RADIOGRAPHIC FINDING IN THE CHEST. Head CT 07/15/17 00:00 IMPRESSION: 1. Moderate chronic pansinusitis. Otherwise, normal noncontrast brain CT examination. Assessment & Plan - Diagnosis (1) Alcohol dependence with acute alcoholic intoxication and delirium Is this a current diagnosis for this admission?: Yes Plan: 1- Alcohol withdrawal protocol: scheduled Valium with prn Ativan 2- Seizure and aspiration precautions 3- Daily multivitamin, thiamin, and banana bag 4- Appreciate RD consultation 5- Appreciate senior buyer planner assistance (2) Elevated LFTs Is this a current diagnosis for this admission?: Yes Plan: Acute hepatitis panel negative. HIV negative. Will monitor. (3) Increased ammonia level Is this a current diagnosis for this admission?: Yes Plan: 1- Lactulose q6 hours 2- Start on rifaximin 3- Monitor level (4) Neutropenia Qualifiers: Neutropenia type: unspecified Qualified Code(s): D70.9 - Neutropenia, unspecified Is this a current diagnosis for this admission?: Yes Plan: Likely secondary to ETOH abuse; WBC/Abs Neutrophils trending upward. Will monitor. (5) Scalp abrasion Qualifiers: Encounter type: initial encounter Qualified Code(s): S00.01XA - Abrasion of scalp, initial encounter Is this a current diagnosis for this admission?: Yes (6) Thrombocytopenia Is this a current diagnosis for this admission?: Yes Plan: Likely secondary to ETOH abuse. Will hold Lovenox/Heparin for now. Will monitor. Bleeding/fall precautions. (7) Diabetes mellitus type 2 in obese Is this a current diagnosis for this admission?: Yes Plan: Accuchecks with SSI. Is not on home medications for DM; consider necessity as approaching d/c. - Time Time Spent with patient: 25-34 minutes Medications reviewed and adjusted accordingly: Yes
[2017-07-16] MEDS: LORAZEPAM INJ 2 MG/1 ML VIAL IV PRN (21:36)
[2017-07-17] MEDS: DIAZEPAM 5 MG TABLET PO SCH ×5 (00:04→23:40)
[2017-07-17] MEDS: RIFAXIMIN 550 MG TABLET PO SCH ×3 (00:04→21:14)
[2017-07-17] MEDS: LACTULOSE SYRUP 20 GM/30 ML UDCUP PO SCH ×4 (00:05→21:13)
[2017-07-17 05:37] LABS: ABSOLUTE EOSINOPHILS # (AUTO) 0.1 10^3/uL (0.0-0.6); ABSOLUTE LYMPHOCYTES (AUTO) 0.6 10^3/uL (0.5-4.7); ABSOLUTE MONOCYTES (AUTO) 0.3 10^3/uL (0.1-1.4); ABSOLUTE NEUT (AUTO) 1.1 10^3/uL (1.7-8.2); BASOPHILS % (AUTO) 0.5 % (0-2); EOSINOPHILS % (AUTO) 4.3 % (0-6); HEMATOCRIT 41.3 % (37.9-51.0); HGB HCT DIFFERENCE 0.7; LYMPHOCYTES % (AUTO) 28.7 % (13-45); MEAN CORPUSCULAR HEMOGLOBIN 27.3 pg (27.0-33.4); MEAN CORPUSCULAR HGB CONC 33.9 g/dL (32.0-36.0); MEAN CORPUSCULAR VOLUME 80 fl (80-97); RED BLOOD COUNT 5.13 10^6/uL (4.35-5.55); RED CELL DISTRIBUTION WIDTH 19.1 % (11.5-14.0); SEGMENTED NEUTROPHILS % (AUTO) 50.5 % (42-78); WHITE BLOOD COUNT 2.1 10^3/uL (4.0-10.5)
[2017-07-17 05:53] LABS: ALANINE AMINOTRANSFERASE 72 U/L (21-72); ALBUMIN 2.9 g/dL (3.5-5.0); ALKALINE PHOSPHATASE 278 U/L (38-126); ANION GAP 11 (5-19); ASPARTATE AMINO TRANSFERASE 97 U/L (17-59); BILIRUBIN,DIRECT 2.6 mg/dL (0.0-0.4); BILIRUBIN,TOTAL 5.2 mg/dL (0.2-1.3); BLOOD UREA NITROGEN 7 mg/dL (7-20); CALCIUM 8.7 mg/dL (8.4-10.2); CARBON DIOXIDE 22 mmol/L (22-30); CHLORIDE 105 mmol/L (98-107); CREATININE RESULT 0.62 mg/dL (0.52-1.25); GLUCOSE 110 mg/dL (75-110); SODIUM 137.7 mmol/L (137-145); TOTAL PROTEIN 6.8 g/dL (6.3-8.2)
[2017-07-17] MEDS: NORMAL SALINE 1000 ML 1,000 ML IV PRN ×2 (06:37→23:20)
[2017-07-17] MEDS: THIAMINE HCL 100 MG TABLET PO SCH (10:22)
[2017-07-17] MEDS: LISINOPRIL 10 MG TABLET PO SCH ×2 (10:22→21:13)
[2017-07-17] MEDS: FOLIC ACID 1 MG TABLET PO SCH (10:22)
--- NOTE | 2017-07-17 13:53 | PDOC PROGRESS REPORT ---
Subjective Progress Note for:: 07/17/17 Subjective:: Pt seen resting in bed comfortable. He reports feeling much better today. He does c/o visual hallucinations described as moving lights and "yelling out" last night. He apologizes if he was disruptive and states he believes the IV pump was the source of his confusion. He also continues to be tremulous. He also c/o frequent loose stools, stating that he has 4-5 bowel movements overnight. He remains slightly drowsy with slurred speech at times, though improved from yesterday. He denies MOURA, dizziness, chest pain, dyspnea, abd pain, nausea, vomiting, and constipation. ROS is otherwise negative. Physical Exam Vital Signs: Temp Pulse Resp BP Pulse Ox 97.8 F 97 18 148/96 H 97 07/17/17 07:43 07/17/17 07:43 07/17/17 07:43 07/17/17 07:43 07/17/17 07:43 Intake & Output 07/16/17 07/17/17 07/18/17 06:59 06:59 06:59 Intake Total 850 4073 Output Total 3300 1450 Balance -2450 2623 Weight 94.6 kg 94.4 kg General appearance: PRESENT: no acute distress, well-developed, well-nourished Head exam: PRESENT: atraumatic, normocephalic Eye exam: PRESENT: conjunctiva pink, EOMI, PERRLA. ABSENT: scleral icterus Ear exam: PRESENT: normal external ear exam Mouth exam: PRESENT: moist, tongue midline Neck exam: ABSENT: carotid bruit, JVD, lymphadenopathy, thyromegaly Respiratory exam: PRESENT: clear to auscultation michelle. ABSENT: rales, rhonchi, wheezes Cardiovascular exam: PRESENT: RRR. ABSENT: diastolic murmur, rubs, systolic murmur Pulses: PRESENT: normal dorsalis pedis pul Vascular exam: PRESENT: normal capillary refill GI/Abdominal exam: PRESENT: normal bowel sounds, soft. ABSENT: distended, guarding, mass, organolmegaly, rebound, tenderness Rectal exam: PRESENT: deferred Extremities exam: PRESENT: full ROM. ABSENT: calf tenderness, clubbing, pedal edema Neurological exam: PRESENT: alert, awake, oriented to person, oriented to place , oriented to time, oriented to situation, CN II-XII grossly intact, other - Drowsy, slurred speech. Improved from yesterday.. ABSENT: motor sensory deficit Psychiatric exam: PRESENT: anxious, normal mood. ABSENT: homicidal ideation, suicidal ideation Focused psych exam: PRESENT: restlessness Skin exam: PRESENT: dry, intact, warm. ABSENT: cyanosis, rash Results Laboratory Results: 07/17/17 05:21 07/17/17 05:21 07/17/17 07/17/17 07/17/17 05:21 05:21 05:21 WBC 2.1 L RBC 5.13 Hgb 14.0 Hct 41.3 MCV 80 MCH 27.3 MCHC 33.9 RDW 19.1 H Plt Count 45 L Seg Neutrophils % 50.5 Lymphocytes % 28.7 Monocytes % 16.0 H Eosinophils % 4.3 Basophils % 0.5 Absolute Neutrophils 1.1 L Absolute Lymphocytes 0.6 Absolute Monocytes 0.3 Absolute Eosinophils 0.1 Absolute Basophils 0.0 Sodium 137.7 Potassium 4.0 Chloride 105 Carbon Dioxide 22 Anion Gap 11 BUN 7 Creatinine 0.62 Est GFR ( Amer) > 60 Est GFR (Non-Af Amer) > 60 Glucose 110 Calcium 8.7 Total Bilirubin 5.2 H AST 97 H ALT 72 Alkaline Phosphatase 278 H Ammonia 26.3 Total Protein 6.8 Albumin 2.9 L Impressions: Cervical Spine CT 07/15/17 00:00 IMPRESSION: 1. Multilevel degenerative disease. No fractures or dislocations. Chest X-Ray 07/15/17 00:00 IMPRESSION: NO ACUTE RADIOGRAPHIC FINDING IN THE CHEST. Head CT 07/15/17 00:00 IMPRESSION: 1. Moderate chronic pansinusitis. Otherwise, normal noncontrast brain CT examination. Assessment & Plan - Diagnosis (1) Alcohol dependence with acute alcoholic intoxication and delirium Is this a current diagnosis for this admission?: Yes Plan: 1- Alcohol withdrawal protocol: scheduled Valium with prn Ativan. PRN ativan required once overnight. Anticipate to begin weaning valium tomorrow. 2- Seizure and aspiration precautions 3- Daily multivitamin, thiamin, and banana bag 4- Appreciate RD consultation 5- Appreciate senior materials planner assistance 6- Will ask Psychiatry to reevaluate pt w/ regard to competency/safe discharge planning (2) Elevated LFTs Is this a current diagnosis for this admission?: Yes Plan: Acute hepatitis panel negative. HIV negative. LFTs trending down. Will continue to monitor. (3) Increased ammonia level Is this a current diagnosis for this admission?: Yes Plan: Resolved. Frequent loose stools overnight, will decrease lactulose w/ goal of 2-3 soft bm' s daily. 1- Lactulose q8 hours 2- Continue rifaximin (4) Neutropenia Qualifiers: Neutropenia type: unspecified Qualified Code(s): D70.9 - Neutropenia, unspecified Is this a current diagnosis for this admission?: Yes Plan: Likely secondary to ETOH abuse; WBC/Abs Neutrophils trending upward. Will monitor. (5) Thrombocytopenia Is this a current diagnosis for this admission?: Yes Plan: Likely secondary to ETOH abuse. Will hold Lovenox/Heparin for now. Will monitor. Bleeding/fall precautions. (6) Diabetes mellitus type 2 in obese Is this a current diagnosis for this admission?: Yes Plan: Accuchecks with SSI. Is not on home medications for DM; consider necessity as approaching d/c. 1- Will check A1C w/ morning labs (7) Hypertension Qualifiers: Hypertension type: essential hypertension Qualified Code(s): I10 - Essential (primary) hypertension Is this a current diagnosis for this admission?: Yes Plan: Hypertension may be exacerbated by EtOH withdrawal. 1- Continue lisinopril 20 mg BID 2- Will add HCTZ 12.5 mg BID (8) Scalp abrasion Qualifiers: Encounter type: initial encounter Qualified Code(s): S00.01XA - Abrasion of scalp, initial encounter Is this a current diagnosis for this admission?: Yes - Time Time Spent with patient: 35 or more minutes Medications reviewed and adjusted accordingly: Yes
[2017-07-17] MEDS: HYDROCHLOROTHIAZIDE 12.5 MG CAPSULE PO SCH (19:00)
[2017-07-17] MEDS ORDERED: LORAZEPAM INJ 2 MG/1 ML VIAL IV ONE (20:30)
[2017-07-17] MEDS ORDERED: LORAZEPAM INJ 2 MG/1 ML VIAL IV SCH (22:00)
[2017-07-18] MEDS: HYDROCHLOROTHIAZIDE 12.5 MG CAPSULE PO SCH ×2 (05:22→18:23)
[2017-07-18] MEDS: DIAZEPAM 5 MG TABLET PO SCH ×4 (05:23→23:20)
[2017-07-18] MEDS: LACTULOSE SYRUP 20 GM/30 ML UDCUP PO SCH ×3 (05:23→21:01)
[2017-07-18 06:09] LABS: ALANINE AMINOTRANSFERASE 67 U/L (21-72); ALKALINE PHOSPHATASE 328 U/L (38-126); ANION GAP 11 (5-19); ASPARTATE AMINO TRANSFERASE 100 U/L (17-59); BILIRUBIN,DIRECT 2.3 mg/dL (0.0-0.4); BILIRUBIN,TOTAL 3.9 mg/dL (0.2-1.3); BLOOD UREA NITROGEN 7 mg/dL (7-20); CALCIUM 9.2 mg/dL (8.4-10.2); CARBON DIOXIDE 24 mmol/L (22-30); CHLORIDE 104 mmol/L (98-107); CREATININE RESULT 0.64 mg/dL (0.52-1.25); GLUCOSE 137 mg/dL (75-110); POTASSIUM 3.8 mmol/L (3.6-5.0); SODIUM 138.5 mmol/L (137-145); TOTAL PROTEIN 6.8 g/dL (6.3-8.2)
[2017-07-18 06:11] LABS: HEMATOCRIT 41.8 % (37.9-51.0); HEMOGLOBIN 14.2 g/dL (13.5-17.0); HGB HCT DIFFERENCE 0.8; MEAN CORPUSCULAR HEMOGLOBIN 27.4 pg (27.0-33.4); MEAN CORPUSCULAR HGB CONC 33.9 g/dL (32.0-36.0); MEAN CORPUSCULAR VOLUME 81 fl (80-97); RED BLOOD COUNT 5.17 10^6/uL (4.35-5.55); RED CELL DISTRIBUTION WIDTH 19.1 % (11.5-14.0); WHITE BLOOD COUNT 1.9 10^3/uL (4.0-10.5)
[2017-07-18] MEDS: LORAZEPAM INJ 2 MG/1 ML VIAL IV PRN ×2 (07:38→21:02)
[2017-07-18] MEDS: NORMAL SALINE 1000 ML 1,000 ML IV PRN (07:38)
[2017-07-18] MEDS: LISINOPRIL 10 MG TABLET PO SCH ×2 (09:22→21:02)
[2017-07-18] MEDS: FOLIC ACID 1 MG TABLET PO SCH (09:22)
[2017-07-18] MEDS: THIAMINE HCL 100 MG TABLET PO SCH (09:23)
[2017-07-18] MEDS: RIFAXIMIN 550 MG TABLET PO SCH ×2 (09:23→21:02)
[2017-07-18] MEDS ORDERED: INFLUENZA ADLT QUAD (36MOS+) 2017-18 VAC 0.5 ML SYR IM PRN (09:30)
[2017-07-18] MEDS: ERYTHROMYCIN 0.5% OPH OINTMENT 3.5 GM TUBE OS SCH ×3 (11:33→23:19)
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
--- NOTE | 2017-07-18 15:07 | PDOC PROGRESS REPORT ---
Subjective Progress Note for:: 07/18/17 Subjective:: Pt seen resting in bed comfortable. He reports feeling much better today. He does report that early last evening he attempted to go to the restroom by himself and became tangled in the IV pole, falling and striking his head against the handrail. He states that he feels that he becomes disoriented at night and is easily confused by the lights in the hallway and by IV pump. He does report mild pain to his left wrist and to his left orbit. He denies eye pain, blurred vision, headache, dizziness at present. Otherwise, he reports that he is feeling better. His loose stools have resolved and his tremor is much improved from yesterday. He remains slightly drowsy with slurred speech at times, however, was just provided IV ativan for anxiety/agitation. He denies MOURA, dizziness, chest pain, dyspnea, abd pain, nausea, vomiting, and constipation. ROS is otherwise negative. Physical Exam Vital Signs: Temp Pulse Resp BP Pulse Ox 97.7 F 112 H 18 122/92 H 100 07/18/17 11:04 07/18/17 11:04 07/18/17 11:04 07/18/17 11:04 07/18/17 11:04 Intake & Output 07/17/17 07/18/17 07/19/17 06:59 06:59 06:59 Intake Total 4073 7070 Output Total 1450 3600 Balance 2623 3470 Weight 94.4 kg 93.7 kg General appearance: PRESENT: no acute distress, well-developed, well-nourished Head exam: PRESENT: atraumatic, normocephalic Eye exam: PRESENT: conjunctiva pink, EOMI, PERRLA, other - Left eye w/ purulent drainage. No injection or subconjectival hemorrhage present.. ABSENT: scleral icterus Ear exam: PRESENT: normal external ear exam Mouth exam: PRESENT: moist, tongue midline Neck exam: ABSENT: carotid bruit, JVD, lymphadenopathy, thyromegaly Respiratory exam: PRESENT: clear to auscultation michelle, symmetrical, unlabored. ABSENT: rales, rhonchi, wheezes Cardiovascular exam: PRESENT: RRR, tachycardia. ABSENT: diastolic murmur, rubs , systolic murmur Pulses: PRESENT: normal dorsalis pedis pul Vascular exam: PRESENT: normal capillary refill GI/Abdominal exam: PRESENT: normal bowel sounds, soft. ABSENT: distended, guarding, mass, organolmegaly, rebound, tenderness Rectal exam: PRESENT: deferred Extremities exam: PRESENT: full ROM. ABSENT: calf tenderness, clubbing, pedal edema Musculoskeletal exam: PRESENT: normal inspection, tenderness - Left wrist; no erythema, edema, echymosis noted. FROM present w/o increased discomfort. Neurological exam: PRESENT: alert, awake, oriented to person, oriented to place , oriented to time, oriented to situation, CN II-XII grossly intact, other - tremulous; imrpoved. ABSENT: motor sensory deficit Psychiatric exam: PRESENT: appropriate affect, normal mood, other - Slighlty drowsy w/ slurred speech. ABSENT: homicidal ideation, suicidal ideation Skin exam: PRESENT: dry, intact, warm. ABSENT: cyanosis, rash Results Laboratory Results: 07/18/17 04:38 07/18/17 04:38 07/18/17 07/18/17 04:38 04:38 WBC 1.9 L RBC 5.17 Hgb 14.2 Hct 41.8 MCV 81 MCH 27.4 MCHC 33.9 RDW 19.1 H Plt Count 47 L Sodium 138.5 Potassium 3.8 Chloride 104 Carbon Dioxide 24 Anion Gap 11 BUN 7 Creatinine 0.64 Est GFR ( Amer) > 60 Est GFR (Non-Af Amer) > 60 Glucose 137 H Calcium 9.2 Total Bilirubin 3.9 H AST 100 H ALT 67 Alkaline Phosphatase 328 H Total Protein 6.8 Albumin 3.0 L Impressions: Cervical Spine CT 07/15/17 00:00 IMPRESSION: 1. Multilevel degenerative disease. No fractures or dislocations. Chest X-Ray 07/15/17 00:00 IMPRESSION: NO ACUTE RADIOGRAPHIC FINDING IN THE CHEST. Head CT 07/15/17 00:00 IMPRESSION: 1. Moderate chronic pansinusitis. Otherwise, normal noncontrast brain CT examination. Assessment & Plan - Diagnosis (1) Alcohol dependence with acute alcoholic intoxication and delirium Is this a current diagnosis for this admission?: Yes Plan: 1- Alcohol withdrawal protocol: scheduled Valium with prn Ativan. PRN ativan required once overnight. Will begin weaning scheduled Valium today. Observe closely for worsening s/sx of withdrawal 2- FALL precautions 3- Seizure and aspiration precautions 4- Daily multivitamin, thiamin 4- Appreciate RD consultation 5- Appreciate logistics planner assistance; likely will be d/c'd to home 6- Appreciate Psychiatry consultation (2) Elevated LFTs Is this a current diagnosis for this admission?: Yes Plan: Acute hepatitis panel negative. HIV negative. LFTs trending down (stable). Will continue to monitor. (3) Increased ammonia level Is this a current diagnosis for this admission?: Yes Plan: Resolved. 1- Continue Lactulose q8 hours 2- Continue rifaximin (4) Neutropenia Qualifiers: Neutropenia type: unspecified Qualified Code(s): D70.9 - Neutropenia, unspecified Is this a current diagnosis for this admission?: Yes Plan: Likely secondary to ETOH abuse; WBC/Abs Neutrophils stable. Will monitor. (5) Thrombocytopenia Is this a current diagnosis for this admission?: Yes Plan: Likely secondary to ETOH abuse. Will hold Lovenox/Heparin for now. Will monitor. Bleeding/fall precautions. (6) Diabetes mellitus type 2 in obese Is this a current diagnosis for this admission?: Yes Plan: Is not on home medications for DM; A1C 5.9%. Will not require home medications at d/c. 1- Accuchecks with SSI. (7) Hypertension Qualifiers: Hypertension type: essential hypertension Qualified Code(s): I10 - Essential (primary) hypertension Is this a current diagnosis for this admission?: Yes Plan: Hypertension may be exacerbated by EtOH withdrawal. 1- Continue lisinopril 20 mg BID 2- Continue HCTZ 12.5 mg BID (8) Scalp abrasion Qualifiers: Encounter type: initial encounter Qualified Code(s): S00.01XA - Abrasion of scalp, initial encounter Is this a current diagnosis for this admission?: Yes - Time Time Spent with patient: 25-34 minutes Medications reviewed and adjusted accordingly: Yes Anticipated discharge: Home - Pt is homeless; planning to take bus to [place] on discharge
[2017-07-18] MEDS ORDERED: LORAZEPAM INJ 2 MG/1 ML VIAL IV SCH (16:00)
[2017-07-18] MEDS: INSULIN LISPRO 100 UNIT/ML 3 ML VIAL SUBCUT PRN (16:47)
[2017-07-19] MEDS: LORAZEPAM INJ 2 MG/1 ML VIAL IV PRN (01:32)
[2017-07-19] MEDS: ERYTHROMYCIN 0.5% OPH OINTMENT 3.5 GM TUBE OS SCH ×3 (05:10→17:18)
[2017-07-19] MEDS: DIAZEPAM 5 MG TABLET PO SCH ×3 (05:11→17:18)
[2017-07-19] MEDS: LACTULOSE SYRUP 20 GM/30 ML UDCUP PO SCH ×3 (05:11→21:16)
[2017-07-19] MEDS: HYDROCHLOROTHIAZIDE 12.5 MG CAPSULE PO SCH ×2 (05:11→17:18)
[2017-07-19] MEDS: LISINOPRIL 10 MG TABLET PO SCH ×2 (10:27→21:16)
[2017-07-19] MEDS: FOLIC ACID 1 MG TABLET PO SCH (10:27)
[2017-07-19] MEDS: THIAMINE HCL 100 MG TABLET PO SCH (10:28)
[2017-07-19] MEDS: RIFAXIMIN 550 MG TABLET PO SCH ×2 (10:28→21:16)
--- NOTE | 2017-07-19 10:54 | PDOC PROGRESS REPORT ---
Subjective Progress Note for:: 07/19/17 Subjective:: Pt seen resting in bed comfortable. He reports feeling much better today. He does continue to have increased confusion and agitation over night. Has required three prn doses of Ativan in the last 24 hours. He reports some continued neck pain r/t his fall the day before. He states that his left wrist and left eye are no longer tender. He denies MOURA, dizziness, chest pain, dyspnea, abd pain, nausea, vomiting, and constipation. ROS is otherwise negative. Physical Exam Vital Signs: Temp Pulse Resp BP Pulse Ox 97.7 F 105 H 18 130/92 H 98 07/19/17 07:47 07/19/17 07:47 07/19/17 07:47 07/19/17 07:47 07/19/17 07:47 Intake & Output 07/18/17 07/19/17 07/20/17 06:59 06:59 06:59 Intake Total 7070 1570 Output Total 3600 6000 Balance 3470 -4430 Weight 92 kg General appearance: PRESENT: no acute distress, well-developed, well-nourished Head exam: PRESENT: atraumatic, normocephalic Eye exam: PRESENT: conjunctiva pink, EOMI, PERRLA, other - Drainge to left eye has resolved; no injection or subconjectival hemorrhage present.. ABSENT: scleral icterus Ear exam: PRESENT: normal external ear exam Mouth exam: PRESENT: moist, tongue midline Neck exam: ABSENT: carotid bruit, JVD, lymphadenopathy, thyromegaly Respiratory exam: PRESENT: clear to auscultation michelle, symmetrical, unlabored. ABSENT: rales, rhonchi, tachypnea, wheezes Cardiovascular exam: PRESENT: RRR, tachycardia - Improving. ABSENT: diastolic murmur, rubs, systolic murmur Pulses: PRESENT: normal dorsalis pedis pul Vascular exam: PRESENT: normal capillary refill GI/Abdominal exam: PRESENT: normal bowel sounds, soft. ABSENT: distended, guarding, mass, organolmegaly, rebound, tenderness Rectal exam: PRESENT: deferred Extremities exam: PRESENT: full ROM. ABSENT: calf tenderness, clubbing, pedal edema, tenderness Musculoskeletal exam: PRESENT: normal inspection Neurological exam: PRESENT: alert, awake, oriented to person, oriented to place , oriented to time, oriented to situation, CN II-XII grossly intact, other - Slightly drowsy. Clearity of speach improved.. ABSENT: motor sensory deficit Psychiatric exam: PRESENT: appropriate affect, normal mood. ABSENT: homicidal ideation, suicidal ideation Skin exam: PRESENT: dry, intact, warm. ABSENT: cyanosis, rash Results Laboratory Results: 07/18/17 04:38 07/18/17 04:38 Impressions: Cervical Spine CT 07/15/17 00:00 IMPRESSION: 1. Multilevel degenerative disease. No fractures or dislocations. Chest X-Ray 07/15/17 00:00 IMPRESSION: NO ACUTE RADIOGRAPHIC FINDING IN THE CHEST. Head CT 07/15/17 00:00 IMPRESSION: 1. Moderate chronic pansinusitis. Otherwise, normal noncontrast brain CT examination. Assessment & Plan - Diagnosis (1) Alcohol dependence with acute alcoholic intoxication and delirium Is this a current diagnosis for this admission?: Yes Plan: 1- Alcohol withdrawal protocol: scheduled Valium with prn Ativan. Doing well with Valium dose reduction, will anticipate reduction again tomorrow. 2- FALL precautions 3- Seizure and aspiration precautions 4- Daily multivitamin, thiamin 4- Appreciate RD consultation 5- Appreciate service planner assistance; likely will be d/c'd to home 6- Appreciate Psychiatry consultation; cleared from psychiatry (2) Elevated LFTs Is this a current diagnosis for this admission?: Yes Plan: Acute hepatitis panel negative. HIV negative. LFTs trending down (stable). Will continue to monitor. (3) Increased ammonia level Is this a current diagnosis for this admission?: Yes Plan: Resolved. 1- Continue Lactulose q8 hours 2- Continue rifaximin (4) Neutropenia Qualifiers: Neutropenia type: unspecified Qualified Code(s): D70.9 - Neutropenia, unspecified Is this a current diagnosis for this admission?: Yes Plan: Likely secondary to ETOH abuse; WBC/Abs Neutrophils stable. Will monitor. (5) Thrombocytopenia Is this a current diagnosis for this admission?: Yes Plan: Likely secondary to ETOH abuse. Will hold Lovenox/Heparin for now. Will monitor. Bleeding/fall precautions. (6) Diabetes mellitus type 2 in obese Is this a current diagnosis for this admission?: Yes Plan: Is not on home medications for DM; A1C 5.9%. Will not require home medications at d/c. 1- Accuchecks with SSI. (7) Hypertension Qualifiers: Hypertension type: essential hypertension Qualified Code(s): I10 - Essential (primary) hypertension Is this a current diagnosis for this admission?: Yes Plan: Hypertension may be exacerbated by EtOH withdrawal. 1- Continue lisinopril 20 mg BID 2- Continue HCTZ 12.5 mg BID (8) Scalp abrasion Qualifiers: Encounter type: initial encounter Qualified Code(s): S00.01XA - Abrasion of scalp, initial encounter Is this a current diagnosis for this admission?: Yes - Time Time Spent with patient: 25-34 minutes Medications reviewed and adjusted accordingly: Yes Anticipated discharge: Home Within: within 72 hours
[2017-07-19] MEDS ORDERED: LORAZEPAM INJ 2 MG/1 ML VIAL IV SCH (16:00)
[2017-07-20] MEDS: ERYTHROMYCIN 0.5% OPH OINTMENT 3.5 GM TUBE OS SCH ×2 (00:10→05:21)
[2017-07-20] MEDS: DIAZEPAM 5 MG TABLET PO SCH ×2 (00:10→05:21)
[2017-07-20 05:17] LABS: HEMATOCRIT 40.8 % (37.9-51.0); HEMOGLOBIN 13.9 g/dL (13.5-17.0); HGB HCT DIFFERENCE 0.9; MEAN CORPUSCULAR HGB CONC 34.2 g/dL (32.0-36.0); MEAN CORPUSCULAR VOLUME 82 fl (80-97); RED BLOOD COUNT 4.97 10^6/uL (4.35-5.55); WHITE BLOOD COUNT 2.3 10^3/uL (4.0-10.5)
[2017-07-20] MEDS: LACTULOSE SYRUP 20 GM/30 ML UDCUP PO SCH ×3 (05:21→23:45)
[2017-07-20] MEDS: HYDROCHLOROTHIAZIDE 12.5 MG CAPSULE PO SCH ×2 (05:22→17:19)
[2017-07-20 05:36] LABS: ANION GAP 11 (5-19); BLOOD UREA NITROGEN 14 mg/dL (7-20); CALCIUM 10.4 mg/dL (8.4-10.2); CARBON DIOXIDE 26 mmol/L (22-30); CHLORIDE 101 mmol/L (98-107); CREATININE RESULT 0.75 mg/dL (0.52-1.25); GLUCOSE 144 mg/dL (75-110); SODIUM 137.7 mmol/L (137-145)
[2017-07-20 08:58] LABS: ALANINE AMINOTRANSFERASE 66 U/L (21-72); ALBUMIN 2.9 g/dL (3.5-5.0); ALKALINE PHOSPHATASE 322 U/L (38-126); ASPARTATE AMINO TRANSFERASE 96 U/L (17-59); BILIRUBIN,DIRECT 1.7 mg/dL (0.0-0.4); TOTAL PROTEIN 6.5 g/dL (6.3-8.2)
[2017-07-20] MEDS: FOLIC ACID 1 MG TABLET PO SCH (10:00)
[2017-07-20] MEDS: RIFAXIMIN 550 MG TABLET PO SCH ×2 (10:00→22:27)
[2017-07-20] MEDS: LISINOPRIL 10 MG TABLET PO SCH ×2 (10:00→22:26)
[2017-07-20] MEDS: THIAMINE HCL 100 MG TABLET PO SCH (10:01)
[2017-07-20] MEDS ORDERED: LACTULOSE SYRUP 20 GM/30 ML UDCUP PO ONE (10:30)
--- NOTE | 2017-07-20 11:02 | PDOC PROGRESS REPORT ---
Subjective Progress Note for:: 07/20/17 Subjective:: Pt seen resting in bed comfortable. He is sleeping and difficult to arouse. Pt does follow directions, however, has delayed and worsening slurred speech. Required one prn doses of Ativan in the last 24 hours. He denies MOURA, dizziness, chest pain, dyspnea, abd pain, nausea, vomiting, and constipation. ROS is otherwise negative. Physical Exam Vital Signs: Temp Pulse Resp BP Pulse Ox 97.7 F 90 20 102/64 98 07/20/17 07:00 07/20/17 07:00 07/20/17 07:00 07/20/17 07:00 07/20/17 07:00 Intake & Output 07/19/17 07/20/17 07/21/17 06:59 06:59 06:59 Intake Total 1570 3988 Output Total 6000 5525 Balance -4496 -4075 Weight 92 kg 92.2 kg General appearance: PRESENT: no acute distress, well-developed, well-nourished Head exam: PRESENT: atraumatic, normocephalic Eye exam: PRESENT: conjunctiva pink, EOMI, PERRLA. ABSENT: conjunctival injection, scleral icterus Ear exam: PRESENT: normal external ear exam Mouth exam: PRESENT: moist, tongue midline Neck exam: ABSENT: carotid bruit, JVD, lymphadenopathy, tenderness, thyromegaly Respiratory exam: PRESENT: clear to auscultation michelle, symmetrical, unlabored. ABSENT: rales, rhonchi, wheezes Cardiovascular exam: PRESENT: RRR. ABSENT: diastolic murmur, rubs, systolic murmur Pulses: PRESENT: normal dorsalis pedis pul Vascular exam: PRESENT: normal capillary refill GI/Abdominal exam: PRESENT: normal bowel sounds, soft. ABSENT: distended, guarding, mass, organolmegaly, rebound, tenderness Rectal exam: PRESENT: deferred Extremities exam: PRESENT: full ROM. ABSENT: calf tenderness, clubbing, pedal edema Neurological exam: PRESENT: oriented to person, oriented to place, oriented to time, oriented to situation, CN II-XII grossly intact, other - Somnulent; does answer questions appropriately and follows directions. Delayed/slurred speech.. ABSENT: motor sensory deficit Psychiatric exam: ABSENT: homicidal ideation, suicidal ideation Skin exam: PRESENT: dry, intact, warm. ABSENT: cyanosis, rash Results Laboratory Results: 07/20/17 04:21 07/20/17 04:21 07/20/17 07/20/17 07/20/17 04:21 04:21 04:21 WBC 2.3 L RBC 4.97 Hgb 13.9 Hct 40.8 MCV 82 MCH 28.0 MCHC 34.2 RDW 20.0 H Plt Count 64 L Sodium 137.7 Potassium 4.0 Chloride 101 Carbon Dioxide 26 Anion Gap 11 BUN 14 Creatinine 0.75 Est GFR ( Amer) > 60 Est GFR (Non-Af Amer) > 60 Glucose 144 H Calcium 10.4 H Total Bilirubin 3.0 H AST 96 H ALT 66 Alkaline Phosphatase 322 H Ammonia Total Protein 6.5 Albumin 2.9 L 07/20/17 09:10 WBC RBC Hgb Hct MCV MCH MCHC RDW Plt Count Sodium Potassium Chloride Carbon Dioxide Anion Gap BUN Creatinine Est GFR ( Amer) Est GFR (Non-Af Amer) Glucose Calcium Total Bilirubin AST ALT Alkaline Phosphatase Ammonia 42.8 H Total Protein Albumin 07/15/17 08:43 Blood Blood Culture - Final NO GROWTH IN 5 DAYS Impressions: Cervical Spine CT 07/15/17 00:00 IMPRESSION: 1. Multilevel degenerative disease. No fractures or dislocations. Chest X-Ray 07/15/17 00:00 IMPRESSION: NO ACUTE RADIOGRAPHIC FINDING IN THE CHEST. Head CT 07/15/17 00:00 IMPRESSION: 1. Moderate chronic pansinusitis. Otherwise, normal noncontrast brain CT examination. Assessment & Plan - Diagnosis (1) Alcohol dependence with acute alcoholic intoxication and delirium Is this a current diagnosis for this admission?: Yes Plan: Pt with decreased alertness and worsening speech today. Repeat labs show slightly elevated ammonia. Will adjust lactulose and discontinue scheduled valium. 1- Alcohol withdrawal protocol: prn Ativan. 2- FALL precautions 3- Seizure and aspiration precautions 4- Daily multivitamin, thiamin 4- Appreciate RD consultation 5- Appreciate community planner assistance; likely will be d/c'd to home 6- Appreciate Psychiatry consultation; cleared from psychiatry (2) Elevated LFTs Is this a current diagnosis for this admission?: Yes Plan: Plan as above. Acute hepatitis panel negative. HIV negative. LFTs trending down (stable). Will continue to monitor. (3) Increased ammonia level Is this a current diagnosis for this admission?: Yes Plan: Plan as above. 1- Continue Lactulose q6 hours 2- Continue rifaximin (4) Neutropenia Qualifiers: Neutropenia type: unspecified Qualified Code(s): D70.9 - Neutropenia, unspecified Is this a current diagnosis for this admission?: Yes Plan: Likely secondary to ETOH abuse. Gradual improvement of WBC. Will monitor. (5) Thrombocytopenia Is this a current diagnosis for this admission?: Yes Plan: Likely secondary to ETOH abuse. Will hold Lovenox/Heparin for now. Will monitor. Bleeding/fall precautions. (6) Diabetes mellitus type 2 in obese Is this a current diagnosis for this admission?: Yes Plan: Is not on home medications for DM; A1C 5.9%. Will not require home medications at d/c. 1- Accuchecks with SSI. (7) Hypertension Qualifiers: Hypertension type: essential hypertension Qualified Code(s): I10 - Essential (primary) hypertension Is this a current diagnosis for this admission?: Yes Plan: Improved. Hypertension may be exacerbated by EtOH withdrawal. 1- Continue lisinopril 20 mg BID 2- Continue HCTZ 12.5 mg BID (8) Scalp abrasion Qualifiers: Encounter type: initial encounter Qualified Code(s): S00.01XA - Abrasion of scalp, initial encounter Is this a current diagnosis for this admission?: Yes - Time Time Spent with patient: 25-34 minutes Medications reviewed and adjusted accordingly: Yes Anticipated discharge: Home
[2017-07-20] MEDS ORDERED: DIAZEPAM 5 MG TABLET PO SCH (12:00)
[2017-07-20] MEDS: INSULIN LISPRO 100 UNIT/ML 3 ML VIAL SUBCUT PRN (12:49)
[2017-07-21] MEDS: LACTULOSE SYRUP 20 GM/30 ML UDCUP PO SCH ×4 (06:31→23:08)
[2017-07-21] MEDS: HYDROCHLOROTHIAZIDE 12.5 MG CAPSULE PO SCH ×2 (06:35→17:37)
[2017-07-21] MEDS: RIFAXIMIN 550 MG TABLET PO SCH ×2 (09:15→21:22)
[2017-07-21] MEDS: THIAMINE HCL 100 MG TABLET PO SCH (09:15)
[2017-07-21] MEDS: LISINOPRIL 10 MG TABLET PO SCH (09:15)
[2017-07-21] MEDS: FOLIC ACID 1 MG TABLET PO SCH (09:15)
[2017-07-21] MEDS ORDERED: LORAZEPAM 1 MG TABLET PO PRN (10:26)
--- NOTE | 2017-07-21 10:26 | PDOC PROGRESS REPORT ---
Subjective Progress Note for:: 07/21/17 Subjective:: Pt seen on morning rounds, sitting on the edge of his bed eating breakfast. Pt reports continued generalized weakness and feeling uncoordinated; however, is encouraged that he was able to ambulate to the restroom last night with minimal assistance. He does report an occasional tremor to his hands that is gradually improving. Overall, he feels that he is much improved and looks forward to being discharged in the near future. He denies MOURA, dizziness, chest pain, dyspnea, abd pain, nausea, vomiting, and constipation. ROS is otherwise negative. Physical Exam Vital Signs: Temp Pulse Resp BP Pulse Ox 97.4 F 91 16 140/98 H 100 07/21/17 07:15 07/21/17 07:15 07/21/17 07:15 07/21/17 07:15 07/21/17 07:15 Intake & Output 07/20/17 07/21/17 07/22/17 06:59 06:59 06:59 Intake Total 3988 3480 Output Total 5525 5200 Balance -1537 -1720 Weight 92.2 kg 92.1 kg General appearance: PRESENT: no acute distress, well-developed, well-nourished Head exam: PRESENT: atraumatic, normocephalic Eye exam: PRESENT: conjunctiva pink, EOMI, PERRLA. ABSENT: scleral icterus Ear exam: PRESENT: normal external ear exam Mouth exam: PRESENT: moist, tongue midline Neck exam: ABSENT: carotid bruit, JVD, lymphadenopathy, thyromegaly Respiratory exam: PRESENT: clear to auscultation michelle. ABSENT: rales, rhonchi, wheezes Cardiovascular exam: PRESENT: RRR. ABSENT: diastolic murmur, rubs, systolic murmur Pulses: PRESENT: normal dorsalis pedis pul Vascular exam: PRESENT: normal capillary refill GI/Abdominal exam: PRESENT: normal bowel sounds, soft. ABSENT: distended, guarding, mass, organolmegaly, rebound, tenderness Rectal exam: PRESENT: deferred Extremities exam: PRESENT: full ROM. ABSENT: calf tenderness, clubbing, pedal edema Neurological exam: PRESENT: alert, awake, oriented to person, oriented to place , oriented to time, oriented to situation, CN II-XII grossly intact, other - Slightly slurred speech, improved. ABSENT: motor sensory deficit Psychiatric exam: PRESENT: appropriate affect, normal mood. ABSENT: homicidal ideation, suicidal ideation Skin exam: PRESENT: dry, intact, warm. ABSENT: cyanosis, rash Results Laboratory Results: 07/20/17 04:21 07/20/17 04:21 07/15/17 11:30 Blood Blood Culture - Final NO GROWTH IN 5 DAYS 07/15/17 08:43 Blood Blood Culture - Final NO GROWTH IN 5 DAYS Impressions: Cervical Spine CT 07/15/17 00:00 IMPRESSION: 1. Multilevel degenerative disease. No fractures or dislocations. Chest X-Ray 07/15/17 00:00 IMPRESSION: NO ACUTE RADIOGRAPHIC FINDING IN THE CHEST. Head CT 07/15/17 00:00 IMPRESSION: 1. Moderate chronic pansinusitis. Otherwise, normal noncontrast brain CT examination. Assessment & Plan - Diagnosis (1) Alcohol dependence with acute alcoholic intoxication and delirium Is this a current diagnosis for this admission?: Yes Plan: Improved s/p discontinuation of scheduled valium. Required prn ativan x 3 in last 24 hours. 1- Alcohol withdrawal protocol: prn Ativan. 2- FALL precautions 3- Seizure and aspiration precautions 4- Daily multivitamin, thiamin 4- Appreciate RD consultation 5- Appreciate shutdown planner assistance; likely will be d/c'd to home 6- Appreciate Psychiatry consultation; cleared from psychiatry (2) Elevated LFTs Is this a current diagnosis for this admission?: Yes Plan: Plan as above. Acute hepatitis panel negative. HIV negative. LFTs trending down (stable). Will continue to monitor. (3) Increased ammonia level Is this a current diagnosis for this admission?: Yes Plan: Plan as above. 1- Continue Lactulose q6 hours 2- Continue rifaximin (4) Neutropenia Qualifiers: Neutropenia type: unspecified Qualified Code(s): D70.9 - Neutropenia, unspecified Is this a current diagnosis for this admission?: Yes Plan: Likely secondary to ETOH abuse. Gradual improvement of WBC. Will monitor. (5) Thrombocytopenia Is this a current diagnosis for this admission?: Yes Plan: Likely secondary to ETOH abuse. Will hold Lovenox/Heparin for now. Will monitor. Bleeding/fall precautions. (6) Diabetes mellitus type 2 in obese Is this a current diagnosis for this admission?: Yes Plan: Is not on home medications for DM; A1C 5.9%. Will not require home medications at d/c. 1- Accuchecks with SSI. (7) Hypertension Qualifiers: Hypertension type: essential hypertension Qualified Code(s): I10 - Essential (primary) hypertension Is this a current diagnosis for this admission?: Yes Plan: Improved. Hypertension may be exacerbated by EtOH withdrawal. 1- Continue lisinopril 30 mg BID 2- Continue HCTZ 12.5 mg BID (8) Scalp abrasion Qualifiers: Encounter type: initial encounter Qualified Code(s): S00.01XA - Abrasion of scalp, initial encounter Is this a current diagnosis for this admission?: Yes - Time Time Spent with patient: 25-34 minutes Medications reviewed and adjusted accordingly: Yes Anticipated discharge: Home Within: within 48 hours
[2017-07-22] MEDS: HYDROCHLOROTHIAZIDE 12.5 MG CAPSULE PO SCH ×2 (05:21→17:55)
[2017-07-22] MEDS: LACTULOSE SYRUP 20 GM/30 ML UDCUP PO SCH ×3 (05:22→17:55)
[2017-07-22] MEDS: RIFAXIMIN 550 MG TABLET PO SCH (10:23)
[2017-07-22] MEDS: FOLIC ACID 1 MG TABLET PO SCH (10:24)
[2017-07-22] MEDS: THIAMINE HCL 100 MG TABLET PO SCH (10:24)
[2017-07-22] MEDS: LISINOPRIL 10 MG TABLET PO SCH (10:24)
[2017-07-22 14:21] LABS: ANION GAP 10 (5-19); BLOOD UREA NITROGEN 16 mg/dL (7-20); CALCIUM 10.3 mg/dL (8.4-10.2); CARBON DIOXIDE 27 mmol/L (22-30); CHLORIDE 101 mmol/L (98-107); CREATINE KINASE 82 U/L (55-170); CREATININE RESULT 0.73 mg/dL (0.52-1.25); GLUCOSE 126 mg/dL (75-110); POTASSIUM 4.5 mmol/L (3.6-5.0); SODIUM 138.2 mmol/L (137-145)
[2017-07-22 15:31] LABS: HEMATOCRIT 42.9 % (37.9-51.0); HEMOGLOBIN 14.5 g/dL (13.5-17.0); HGB HCT DIFFERENCE 0.6; MEAN CORPUSCULAR HEMOGLOBIN 27.1 pg (27.0-33.4); MEAN CORPUSCULAR HGB CONC 33.7 g/dL (32.0-36.0); MEAN CORPUSCULAR VOLUME 80 fl (80-97); RED BLOOD COUNT 5.34 10^6/uL (4.35-5.55); RED CELL DISTRIBUTION WIDTH 19.8 % (11.5-14.0); WHITE BLOOD COUNT 2.3 10^3/uL (4.0-10.5)
--- NOTE | 2017-07-22 16:09 | PDOC PROGRESS REPORT ---
Subjective Progress Note for:: 07/22/17 Subjective:: Pt seen on morning rounds, sitting on the edge of his bed eating breakfast. Pt reports continued generalized weakness and feeling uncoordinated. He is concerned about discharge as he is homeless and must be able to ambulate and carry a backpack (entirety of his ownings). He does report an occasional tremor to his hands that is gradually improving. He denies MOURA, dizziness, chest pain, dyspnea, abd pain, nausea, vomiting, and constipation. ROS is otherwise negative. Physical Exam Vital Signs: Temp Pulse Resp BP Pulse Ox 98.4 F 90 16 119/75 95 07/22/17 15:18 07/22/17 15:18 07/22/17 15:18 07/22/17 15:18 07/22/17 15:18 Intake & Output 07/21/17 07/22/17 07/23/17 06:59 06:59 06:59 Intake Total 3480 2056 591 Output Total 5200 3600 375 Balance -1720 -1544 216 Weight 92.1 kg 92.8 kg General appearance: PRESENT: no acute distress, well-developed, well-nourished Head exam: PRESENT: atraumatic, normocephalic Eye exam: PRESENT: conjunctiva pink, EOMI, PERRLA. ABSENT: scleral icterus Ear exam: PRESENT: normal external ear exam Mouth exam: PRESENT: moist, tongue midline Neck exam: ABSENT: carotid bruit, JVD, lymphadenopathy, thyromegaly Respiratory exam: PRESENT: clear to auscultation michelle. ABSENT: rales, rhonchi, wheezes Cardiovascular exam: PRESENT: RRR. ABSENT: diastolic murmur, rubs, systolic murmur Pulses: PRESENT: normal dorsalis pedis pul Vascular exam: PRESENT: normal capillary refill GI/Abdominal exam: PRESENT: normal bowel sounds, soft. ABSENT: distended, guarding, mass, organolmegaly, rebound, tenderness Rectal exam: PRESENT: deferred Extremities exam: PRESENT: full ROM. ABSENT: calf tenderness, clubbing, pedal edema Neurological exam: PRESENT: alert, awake, oriented to person, oriented to place , oriented to time, oriented to situation, CN II-XII grossly intact, other - Slightly slurred speech. Occasional, slight, resting tremor.. ABSENT: motor sensory deficit Psychiatric exam: PRESENT: appropriate affect, normal mood. ABSENT: homicidal ideation, suicidal ideation Skin exam: PRESENT: dry, intact, warm. ABSENT: cyanosis, rash Results Laboratory Results: 07/22/17 14:40 07/22/17 13:30 07/22/17 07/22/17 07/22/17 13:30 13:30 14:40 WBC Cancelled 2.3 L RBC Cancelled 5.34 Hgb Cancelled 14.5 Hct Cancelled 42.9 MCV Cancelled 80 MCH Cancelled 27.1 MCHC Cancelled 33.7 RDW Cancelled 19.8 H Plt Count Cancelled 59 L Sodium 138.2 Potassium 4.5 Chloride 101 Carbon Dioxide 27 Anion Gap 10 BUN 16 Creatinine 0.73 Est GFR ( Amer) > 60 Est GFR (Non-Af Amer) > 60 Glucose 126 H Calcium 10.3 H 07/22/17 13:30 Creatine Kinase 82 Impressions: Cervical Spine CT 07/15/17 00:00 IMPRESSION: 1. Multilevel degenerative disease. No fractures or dislocations. Chest X-Ray 07/15/17 00:00 IMPRESSION: NO ACUTE RADIOGRAPHIC FINDING IN THE CHEST. Head CT 07/15/17 00:00 IMPRESSION: 1. Moderate chronic pansinusitis. Otherwise, normal noncontrast brain CT examination. Assessment & Plan - Diagnosis (1) Weakness generalized Is this a current diagnosis for this admission?: Yes Plan: Has had difficulty with ambulating and managing ADLs independently 2/2 generalized weakness. Will ask PT to evaluate. Unlikely to qualify for snf for short-term rehabilitation. Will ask nursing staff to mobilize patient as much as possible throughout they day. Anticipate discharge to homeless status tomorrow; pt has received information with regard to area shelters. 1- PT to evaluate and treat 2- OOB for meals (2) Alcohol dependence with acute alcoholic intoxication and delirium Is this a current diagnosis for this admission?: Yes Plan: Improved. No longer receiving benzodiazepines; did well overnight without ativan. Has had difficulty with ambulating and managing ADLs independently 2/2 generalized weakness. Will ask PT to evaluate. Unlikely to qualify for snf for short-term rehabilitation. Will ask nursing staff to mobilize patient as much as possible throughout they day. Anticipate discharge to homeless status tomorrow; pt has received information with regard to area shelters. 1- Alcohol withdrawal protocol completed. 2- FALL precautions 3- Seizure and aspiration precautions 4- Daily multivitamin, thiamin 4- Appreciate RD consultation 5- Appreciate associate financial planner assistance; likely will be d/c'd to home 6- Appreciate Psychiatry consultation; cleared from psychiatry 7- PT to evaluate and treat (3) Elevated LFTs Is this a current diagnosis for this admission?: Yes Plan: Plan as above. Acute hepatitis panel negative. HIV negative. LFTs trending down (stable). (4) Increased ammonia level Is this a current diagnosis for this admission?: Yes Plan: Plan as above. 1- Continue Lactulose q6 hours 2- Continue rifaximin (5) Neutropenia Qualifiers: Neutropenia type: unspecified Qualified Code(s): D70.9 - Neutropenia, unspecified Is this a current diagnosis for this admission?: Yes Plan: Likely secondary to ETOH abuse. Gradual improvement of WBC. (6) Thrombocytopenia Is this a current diagnosis for this admission?: Yes Plan: Likely secondary to ETOH abuse. Will hold Lovenox/Heparin for now. Bleeding/fall precautions. (7) Diabetes mellitus type 2 in obese Is this a current diagnosis for this admission?: Yes Plan: Is not on home medications for DM; A1C 5.9%. Will not require home medications at d/c. 1- Accuchecks with SSI. (8) Hypertension Qualifiers: Hypertension type: essential hypertension Qualified Code(s): I10 - Essential (primary) hypertension Is this a current diagnosis for this admission?: Yes Plan: Improved. Hypertension may be exacerbated by EtOH withdrawal. 1- Continue lisinopril 30 mg BID 2- Continue HCTZ 12.5 mg BID (9) Scalp abrasion Qualifiers: Encounter type: initial encounter Qualified Code(s): S00.01XA - Abrasion of scalp, initial encounter Is this a current diagnosis for this admission?: Yes - Time Time Spent with patient: 25-34 minutes Smoking Cessation Education: 3 to 10 minutes Medications reviewed and adjusted accordingly: Yes Anticipated discharge: Home Within: within 24 hours
[2017-07-23] MEDS ORDERED: RIFAXIMIN 550 MG TABLET ONE (01:31)
[2017-07-23] MEDS: RIFAXIMIN 550 MG TABLET PO SCH ×2 (02:29→11:28)
[2017-07-23] MEDS: LACTULOSE SYRUP 20 GM/30 ML UDCUP PO SCH ×4 (02:30→17:05)
[2017-07-23] MEDS: HYDROCHLOROTHIAZIDE 12.5 MG CAPSULE PO SCH ×2 (05:52→17:05)
[2017-07-23] MEDS: THIAMINE HCL 100 MG TABLET PO SCH (10:53)
[2017-07-23] MEDS: FOLIC ACID 1 MG TABLET PO SCH (10:53)
[2017-07-23] MEDS: LISINOPRIL 10 MG TABLET PO SCH (10:53)
[2017-07-23] MEDS ORDERED: ONDANSETRON 4 MG TAB.RAPDIS PO PRN (13:33)
--- NOTE | 2017-07-23 18:40 | PDOC PROGRESS REPORT ---
Subjective Progress Note for:: 07/23/17 Subjective:: Patient states that he has no home. He has a brother who we does not get along with. Plans originally were to discharge him to the street. However, the patient cannot walk and has been working with PT. He is been eating well and currently has no complaints. Physical Exam Vital Signs: Temp Pulse Resp BP Pulse Ox 98.5 F 89 18 115/69 97 07/23/17 15:18 07/23/17 15:18 07/23/17 15:18 07/23/17 15:18 07/23/17 15:18 Intake & Output 07/22/17 07/23/17 07/24/17 06:59 06:59 06:59 Intake Total 2056 2267 575 Output Total 3600 2475 Balance -1544 -208 575 Weight 92.8 kg 92.3 kg GENERAL: Well-developed well-nourished appearing white male resting in bed currently in no acute distress. HEART: Regular rate and rhythm. No murmurs, rubs or gallops. LUNGS: Clear to auscultation bilaterally with equal rise and fall of the chest. ABDOMEN: Soft, nontender, nondistended with normoactive bowel sounds EXTREMETIES: No clubbing, cyanosis or edema. 2+ peripheral pulses bilaterally. NEURO: Awake, alert and oriented 3. Has a glazed over look and occasionally slurs his words. Cranial nerves II through XII are grossly intact. No tremulousness on exam. Results Laboratory Results: 07/22/17 14:40 07/22/17 13:30 07/22/17 13:30 Creatine Kinase 82 Impressions: Cervical Spine CT 07/15/17 00:00 IMPRESSION: 1. Multilevel degenerative disease. No fractures or dislocations. Chest X-Ray 07/15/17 00:00 IMPRESSION: NO ACUTE RADIOGRAPHIC FINDING IN THE CHEST. Head CT 07/15/17 00:00 IMPRESSION: 1. Moderate chronic pansinusitis. Otherwise, normal noncontrast brain CT examination. Assessment & Plan - Diagnosis (1) Alcohol dependence with acute alcoholic intoxication and delirium Is this a current diagnosis for this admission?: Yes Plan: Patient has continuous alcohol use. He is status post alcohol intoxication and withdrawal with delirium. He is currently off of all benzodiazepines. (2) Thrombocytopenia Is this a current diagnosis for this admission?: Yes Plan: Secondary to alcohol abuse. Continue to monitor (3) Weakness generalized Is this a current diagnosis for this admission?: Yes Plan: The patient is deconditioned. Continue PT. I am not certain how we will manage sending this patient out of the hospital. If he cannot walk I do not see how I can discharge him to the street. (4) Elevated LFTs Is this a current diagnosis for this admission?: Yes Plan: Secondary to continued alcohol use continue to monitor. (5) Neutropenia Qualifiers: Neutropenia type: unspecified Qualified Code(s): D70.9 - Neutropenia, unspecified Is this a current diagnosis for this admission?: Yes Plan: Secondary to underlying alcohol abuse. Continue to monitor. - Time Time Spent with patient: 15-24 minutes - Inpatient Certification Medical Necessity: Need Close Monitoring Due to Risk of Patient Decompensation
[2017-07-24] MEDS: LACTULOSE SYRUP 20 GM/30 ML UDCUP PO SCH ×5 (01:26→23:02)
[2017-07-24] MEDS: HYDROCHLOROTHIAZIDE 12.5 MG CAPSULE PO SCH ×2 (06:49→17:11)
[2017-07-24] MEDS: LISINOPRIL 10 MG TABLET PO SCH (10:02)
[2017-07-24] MEDS: FOLIC ACID 1 MG TABLET PO SCH (10:02)
[2017-07-24] MEDS: THIAMINE HCL 100 MG TABLET PO SCH (10:02)
--- NOTE | 2017-07-24 16:40 | PDOC PROGRESS REPORT ---
Subjective Progress Note for:: 07/24/17 Subjective:: Patient states that he has no home. He has a brother who we does not get along with. Plans originally were to discharge him to the street. However, the patient cannot walk and has been working with PT. OT was consulted for their opinion. Unfortunately the patient has no financial backing to go to a rehab and he is doing too well to go to an inpatient rehab. If we were to find a facility for him for subacute rehab it would likely be out of town and the patient is in disagreement with this. However based on my conversation with discharge planning it is not likely that he would even qualify for this. Physical Exam Vital Signs: Temp Pulse Resp BP Pulse Ox 97.6 F 91 18 128/79 H 97 07/24/17 12:28 07/24/17 12:28 07/24/17 12:28 07/24/17 12:28 07/24/17 12:28 Intake & Output 07/23/17 07/24/17 07/25/17 06:59 06:59 06:59 Intake Total 2267 2245 Output Total 2475 1500 Balance -208 745 Weight 92.3 kg 91.4 kg GENERAL: Well-developed well-nourished appearing white male resting in bed currently in no acute distress. HEART: Regular rate and rhythm. No murmurs, rubs or gallops. LUNGS: Clear to auscultation bilaterally with equal rise and fall of the chest. ABDOMEN: Soft, nontender, nondistended with normoactive bowel sounds EXTREMETIES: No clubbing, cyanosis or edema. 2+ peripheral pulses bilaterally. NEURO: Awake, alert and oriented 3. Has a glazed over look and occasionally slurs his words. Cranial nerves II through XII are grossly intact. No tremulousness on exam. Results Laboratory Results: 07/22/17 14:40 07/22/17 13:30 07/22/17 13:30 Creatine Kinase 82 Impressions: Cervical Spine CT 07/15/17 00:00 IMPRESSION: 1. Multilevel degenerative disease. No fractures or dislocations. Chest X-Ray 07/15/17 00:00 IMPRESSION: NO ACUTE RADIOGRAPHIC FINDING IN THE CHEST. Head CT 07/15/17 00:00 IMPRESSION: 1. Moderate chronic pansinusitis. Otherwise, normal noncontrast brain CT examination. Assessment & Plan - Diagnosis (1) Alcohol dependence with acute alcoholic intoxication and delirium Is this a current diagnosis for this admission?: Yes Plan: Patient has continuous alcohol use. He is status post alcohol intoxication and withdrawal with delirium. He is currently off of all benzodiazepines. (2) Thrombocytopenia Is this a current diagnosis for this admission?: Yes Plan: Secondary to alcohol abuse. Continue to monitor (3) Weakness generalized Is this a current diagnosis for this admission?: Yes Plan: The patient is deconditioned. Continue PT. unfortunately, there is little records for this patient. He has no financial support to go to subacute rehab and is ambulating too well for inpatient rehab. He is currently homeless and at this point we have no other choice but to discharge him to the street. The patient states that he would like to go to a bus station and wait for bus to get to [place]. At this point in the day I think it would be best to wait till tomorrow where the patient has the advantage of a full days worth of sunlight. We will try and get him discharged first thing in the morning. (4) Elevated LFTs Is this a current diagnosis for this admission?: Yes Plan: Secondary to continued alcohol use continue to monitor. (5) Neutropenia Qualifiers: Neutropenia type: unspecified Qualified Code(s): D70.9 - Neutropenia, unspecified Is this a current diagnosis for this admission?: Yes Plan: Secondary to underlying alcohol abuse. Continue to monitor. - Time Time Spent with patient: 15-24 minutes - Inpatient Certification Medical Necessity: Significant Comorbidiites Make Outpatient Treatment Too Risky
[2017-07-25] MEDS: LACTULOSE SYRUP 20 GM/30 ML UDCUP PO SCH ×2 (05:32→13:31)
[2017-07-25] MEDS: HYDROCHLOROTHIAZIDE 12.5 MG CAPSULE PO SCH (05:36)
[2017-07-25] MEDS: THIAMINE HCL 100 MG TABLET PO SCH (09:09)
[2017-07-25] MEDS: FOLIC ACID 1 MG TABLET PO SCH (09:10)
[2017-07-25] MEDS: LISINOPRIL 10 MG TABLET PO SCH (09:10)
--- NOTE | 2017-07-25 09:26 | PDOC DISCHARGE SUMMARY ---
General - Admit/Disc Date/PCP Admission Date/Primary Care Provider: 07/15/17 07:35 Discharge Date: 07/25/17 - Discharge Diagnosis (1) Alcohol dependence with acute alcoholic intoxication and delirium Is this a current diagnosis for this admission?: Yes Summary: The patient's delirium has resolved. He has gone through alcohol withdrawal is currently off of benzodiazepines. His plan is to go to the bus station and wait for bus that he will be able to take to [place]. (2) Thrombocytopenia Is this a current diagnosis for this admission?: Yes Summary: Secondary to his underlying alcoholism. is stable. (3) Weakness generalized Is this a current diagnosis for this admission?: Yes Summary: The patient is able to ambulate some but not as well as I would like to see. Unfortunately he is doing too well for an inpatient rehab facility and does not have the financial support for subacute rehab. He is not able to get into any facility because of these reasons. Unfortunately he will have to be discharged to the street. He came in homeless and did speak with the discharge planners and was given a list of homeless shelters he could contact. Patient's plan is to go to a bus stop and stay there until he can afford to get back to [place]. (4) Elevated LFTs Is this a current diagnosis for this admission?: Yes Summary: Secondary to underlying alcoholism (5) Neutropenia Is this a current diagnosis for this admission?: Yes Summary: Secondary to underlying alcoholism. - Additional Information Resuscitation Status: Full Code Home Medications: Ibuprofen [Motrin 800 mg Tablet] 800 mg PO QAM 07/16/17 History of Present Illness History of Present Illness: GUERA MENDEZ is a 52 year old white male who was admitted for acute alcohol intoxication and alcohol withdrawal. Please see the history of present illness below for details, as provided by the admitting physician. History of Present Illness: GUERA MENDEZ is a 52 year old reportedly homeless male with ongoing alcohol abuse who was actually initially seen in the emergency room the afternoon of the and noted to be acutely intoxicated. Patient has been discussed with emergency room PA who evaluated the patient. Patient is sedated from medication treating his alcohol withdrawal symptoms and is able to provide no history whatsoever in terms of acute or chronic events, review of systems, personal habits, family history, etc. No friends or family are present. No old inpatient records available for review. Patient was reportedly in [facility] waiting for a bus to take him to family in [place]. Called EMS, deciding that yesterday he was going to stop drinking. Initial plans by the ER staff were to let his serum alcohol wear off and then discharge him. However, early this morning, patient began exhibiting katarzyna withdrawal symptoms and decision was made to contact the hospitalist service for admission. When first seen in the emergency room, he denied chest pain shortness of breath abdominal pain, vomiting or diarrhea. He was noted to be stable walking and conversing, and eating a meal without tremors. No further information available this point in time. Dictation via voice recognition software. Laboratory results are listed in [employer] and are reviewed. X-ray summary results are listed below, with full report(s) reviewed. EKG reviewed. No prior EKG available for comparison. Hospital Course Hospital Course: Patient was admitted to the hospital and was found to be quite somnolent with slurred speech at times. He was treated with daily multivitamin, thiamine and folate. Seizure and alcohol withdrawal protocols were activated. He was noted to have an increased ammonia level as well and was started on rifaximin. He was found to be neutropenic as well as thrombocytopenic and this was felt to be secondary to the patient's underlying alcohol abuse. He was also found to be tremulous. He was given lactulose every 8 hours initially and his hypertension was treated with losartan and lisinopril and HCTZ. He was seen by psychiatry and was cleared from their standpoint. Hepatitis and HIV panel was negative. LFTs which were elevated on admission trended downward. Unfortunately, the patient's is homeless. He had one brother that he really does not get along with. It became concerning that he might not have a place to be discharged to in his current weakened state. Unfortunately because the patient had no finances or ability to pay for subacute rehab he was not able to be placed there. Charge planning service did try inpatient rehab. Unfortunately the patient was felt to ambulate too well for that. The patient was seen by both PT and OT here. By the time of discharge the patient was able to transfer with greater ease and was able to ambulate 150 feet although with an unsteady gait. He had loss of balance but was able to recover with minimal assistance. He uses a walker for the last 75 feet of his ambulation. At discharge we are trying to get him a free walker and ride to the bus station. Physical Exam Vital Signs: Temp Pulse Resp BP Pulse Ox 97.4 F 85 16 144/92 H 100 07/25/17 08:00 07/25/17 08:00 07/25/17 03:34 07/25/17 08:00 07/25/17 08:00 Intake & Output 07/24/17 07/25/17 07/26/17 06:59 06:59 06:59 Intake Total 2245 3316 Output Total 1500 3000 Balance 745 316 Weight 91.4 kg 91 kg GENERAL: Well-developed well-nourished appearing white male resting in bed currently in no acute distress. HEART: Regular rate and rhythm. No murmurs, rubs or gallops. LUNGS: Clear to auscultation bilaterally with equal rise and fall of the chest. ABDOMEN: Soft, nontender, nondistended EXTREMETIES: No clubbing, cyanosis or edema. 2+ peripheral pulses bilaterally. NEURO: Awake, alert and oriented 3. Cranial nerves II through XII are grossly intact. No tremulousness on exam. Results Laboratory Results: 07/22/17 14:40 07/22/17 13:30 07/22/17 13:30 Creatine Kinase 82 Impressions: Cervical Spine CT 07/15/17 00:00 IMPRESSION: 1. Multilevel degenerative disease. No fractures or dislocations. Chest X-Ray 07/15/17 00:00 IMPRESSION: NO ACUTE RADIOGRAPHIC FINDING IN THE CHEST. Head CT 07/15/17 00:00 IMPRESSION: 1. Moderate chronic pansinusitis. Otherwise, normal noncontrast brain CT examination. Qualifiers PATEINT BEING DISCHARGED WITH ANY OF THE FOLLOWING DIAGNOSIS?: No Plan Time Spent: Less than 30 Minutes
[2017-07-25 14:30] VITALS: BP 117/76
== END 2017-07-25 15:00 | disposition home or self-care (01) | DRG 897 ==
LOC: ER 15:38 → EH 07-15 06:19 → UNDOADMIN 07-15 06:19 → EH 07-15 07:35 → 3W 07-15 10:10
PROVIDERS: ADMIT Family Medicine; ATTEND Family Medicine
PROC: 3E0234Z Introduction of Serum, Toxoid and Vaccine into Muscle, Percutaneous Approach (ICD-10-PCS; principal; 2017-07-25)
DX: F10.221 Alcohol dependence with intoxication delirium (principal); Y90.8 Blood alcohol level of 240 mg/100 ml or more; D70.9 Neutropenia, unspecified; D69.59 Other secondary thrombocytopenia; J32.4 Chronic pansinusitis; S00.01XA Abrasion of scalp, initial encounter; X58.XXXA Exposure to other specified factors, initial encounter; I10 Essential (primary) hypertension; F17.210 Nicotine dependence, cigarettes, uncomplicated; F32.9 Major depressive disorder, single episode, unspecified; M50.30 Other cervical disc degeneration, unspecified cervical region; E66.9 Obesity, unspecified; Z68.27 Body mass index [BMI] 27.0-27.9, adult; R47.81 Slurred speech; I45.81 Long QT syndrome; E11.65 Type 2 diabetes mellitus with hyperglycemia; Z23 Encounter for immunization; Z59.0 Homelessness; Z88.8 Allergy status to other drugs, medicaments and biological substances
CPT/HCPCS: 36415; 70450; 71010; 72125; 80048; 80053; 80074; 80076; 80307; 81001; 82140; 82550; 82962; 83036; 83735; 84443; 84484; 85025; 85027; 85610; 85730; 86701; 87040; 87086; 93005; 93010; 99285; A9270-GY; J1815; J2060; J3411; J3475; J3480; J3490; J7030; L0172; S0119

== ENCOUNTER 2018-12-16 21:17 | Emergency (ER) | payer SELFPAY ==
[2018-12-16] MEDS ORDERED: NORMAL SALINE 1000 ML 1,000 ML with POTASSIUM CHLORIDE 20 MEQ, MAGNESIUM SULFATE 8 MEQ,... IV PRN ×5 (22:38)
[2018-12-16 23:06] LABS: ABSOLUTE EOSINOPHILS # (AUTO) 0.5 10^3/uL (0.0-0.6); ABSOLUTE LYMPHOCYTES (AUTO) 1.6 10^3/uL (0.5-4.7); ABSOLUTE MONOCYTES (AUTO) 0.5 10^3/uL (0.1-1.4); BASOPHILS % (AUTO) 0.9 % (0-2); EOSINOPHILS % (AUTO) 10.1 % (0-6); HEMATOCRIT 41.2 % (37.9-51.0); HEMOGLOBIN 14.6 g/dL (13.5-17.0); LYMPHOCYTES % (AUTO) 34.3 % (13-45); MEAN CORPUSCULAR HEMOGLOBIN 32.7 pg (27.0-33.4); MEAN CORPUSCULAR HGB CONC 35.4 g/dL (32.0-36.0); MEAN CORPUSCULAR VOLUME 92 fl (80-97); MONOCYTES % (AUTO) 11.7 % (3-13); PLATELET COUNT 100 10^3/uL (150-450); RED BLOOD COUNT 4.45 10^6/uL (4.35-5.55); RED CELL DISTRIBUTION WIDTH 15.1 % (11.5-14.0); TOTAL CELLS COUNTED % (AUTO) 100 %; WHITE BLOOD COUNT 4.7 10^3/uL (4.0-10.5)
[2018-12-16 23:13] LABS: INTERNATIONAL RATION (INR) 1.22
[2018-12-16 23:14] LABS: PARTIAL THROMBOPLASTIN TIME 37.1 SEC (23.5-35.8)
[2018-12-16 23:31] LABS: ALANINE AMINOTRANSFERASE 73 U/L (21-72); ALBUMIN 3.3 g/dL (3.5-5.0); ALKALINE PHOSPHATASE 367 U/L (38-126); ANION GAP 8 (5-19); ASPARTATE AMINO TRANSFERASE 75 U/L (17-59); BILIRUBIN,DIRECT 1.1 mg/dL (0.0-0.4); BILIRUBIN,TOTAL 2.7 mg/dL (0.2-1.3); BLOOD UREA NITROGEN 6 mg/dL (7-20); CALCIUM 8.5 mg/dL (8.4-10.2); CARBON DIOXIDE 24 mmol/L (22-30); CHLORIDE 108 mmol/L (98-107); GLUCOSE 295 mg/dL (75-110); LIPASE 231.9 U/L (23-300); POTASSIUM 4.3 mmol/L (3.6-5.0); SODIUM 139.9 mmol/L (137-145); TOTAL PROTEIN 6.8 g/dL (6.3-8.2)
--- NOTE | 2018-12-16 23:39 | RADIOLOGY REPORT (SQ) ---
EXAM DESCRIPTION: CT HEAD WITHOUT IV CONTRAST COMPLETED DATE/TME: 12/16/2018 22:36 CLINICAL HISTORY: 53 years Male, EtOH, altered mental status COMPARISON: None. TECHNIQUE: No contrast. Coronal and sagittal reformat. This exam was performed according to our departmental dose-optimization program, which includes automated exposure control, adjustment of the mA and/or kV according to patient size and/or use of iterative reconstruction technique. FINDINGS: No hemorrhage or infarct. No mass, mass effect, or midline shift. White matter microangiopathy, parenchymal volume loss, and atherosclerosis. Moderate ethmoid mucosal thickening. Mild bilateral maxillary mucosal thickening. Brain and extra-axial structures appear otherwise intact. IMPRESSION: No acute findings.
[2018-12-16 23:47] LABS: ACETAMINOPHEN < 10 ug/mL (10-30); SALICYLATE < 1.0 mg/dL (2.0-20.0)
[2018-12-16 23:48] LABS: APPEARANCE,URINE CLEAR; BILIRUBIN,URINE NEGATIVE (NEGATIVE); COLOR,URINE YELLOW; GLUCOSE, URINE >=500 mg/dL (NEGATIVE); KETONES,URINE NEGATIVE (NEGATIVE); LEUKOCYTE ESTERASE,URINE NEGATIVE (NEGATIVE); NITRITE,URINE NEGATIVE (NEGATIVE); PROTEIN,URINE NEGATIVE (NEGATIVE); URINE SPECIFIC GRAVITY 1.003; UROBILINOGEN,URINE NEGATIVE mg/dL (<2.0)
[2018-12-16 23:49] LABS: ALCOHOL 336 mg/dL (NONE DETECTED)
[2018-12-17 00:02] LABS: URINE AMPHETAMINES SCREEN NEGATIVE; URINE BARBITURATES SCREEN NEGATIVE; URINE BENZODIAZEPINES SCREEN NEGATIVE; URINE COCAINE SCREEN NEGATIVE; URINE MARIJUANA (THC) SCREEN NEGATIVE; URINE METHADONE SCREEN NEGATIVE; URINE PHENCYCLIDINE SCREEN NEGATIVE
--- NOTE | 2018-12-17 03:53 | ER Document Report ---
ED General - General Chief Complaint: ETOH Abuse Stated Complaint: ETOH Time Seen by Provider: 12/16/18 22:29 TRAVEL OUTSIDE OF THE [place] IN LAST 30 DAYS: No - HPI Notes: She brought to the emergency department for evaluation by EMS. Evidently he did call 911. He was found intoxicated in a park. He stated he wanted help with his drinking. I cannot obtain any further meaningful history from the patient at this time secondary to his level of agitation. He denies any pain. He denies any recent falls that he can remember. - Related Data Allergies/Adverse Reactions: quetiapine [From Seroquel] Allergy (Verified 06/07/17 22:20) Past Medical History - General Information source: Patient, Emergency Med Personnel - Social History Smoking Status: Unknown if Ever Smoked Frequency of alcohol use: Heavy Family History: Reviewed & Not Pertinent Patient has suicidal ideation: No Patient has homicidal ideation: No - Past Medical History Cardiac Medical History: Reports: Hx Hypertension Endocrine Medical History: Reports: Hx Diabetes Mellitus Type 2 Renal/ Medical History: Denies: Hx Peritoneal Dialysis Psychiatric Medical History: Reports: Hx Depression Past Surgical History: Reports: Hx Abdominal Surgery, Hx Orthopedic Surgery - Knee Review of Systems - Review of Systems -: Yes ROS unobtainable due to patient's medical condition Physical Exam - Vital signs Vitals: Pulse Resp BP Pulse Ox 97 18 129/80 H 98 12/16/18 21:28 12/16/18 21:28 12/16/18 21:28 12/16/18 21:28 - Notes Notes: Patient extremely intoxicated. Exam consistent with such, with slurred speech, at times unintelligible. Coordination diminished. Head is normocephalic and appears atraumatic. Pupils are equal, round, reactive to light. Neck is supple, no apparent meningismus. Heart is regular rate and rhythm, lungs are clear to oscillation bilaterally. Abdomen is protuberant with well-healed midline surgical scar consistent with possible exploratory laparotomy. He has an easily reducible hernia. Extremities without cyanosis or clubbing. Patient moves all 4 extremities spontaneously. He smells strongly of alcohol and is di sheveled. Course - Re-evaluation Re-evalutation: 12/17/18 03:51 Patient presents to the emergency department for evaluation. On initial evaluation I was unable to gather any significant history other than what was told to me by EMS. The patient was monitored here, blood work ordered. Blood work is largely remarkable for a mildly elevated INR and a markedly elevated alcohol level. He remained stable throughout the course of his stay. He was given assistance. He did rip out his IV so he did not receive any IV fluids. During the course of his stay he stated that he was no longer interested in getting help for his alcohol use. We are currently trying to contact a family member to come and cook pickled meat the patient from the department. 12/17/18 05:13 Patient seen and reexamined. He states he no longer wants help with his alcohol abuse. He admits to drinking daily. He states he does not believe in any family members or friends will come to retrieve him. He is calm and cooperative, normal exam. Clinically improving significantly. We will let the patient go around 9 AM, when it is expected that he will be below the legal limit based on blood work. - Vital Signs Vital signs: Temp Pulse Resp BP Pulse Ox 97.6 F 94 16 107/59 L 94 12/17/18 02:27 12/17/18 02:27 12/17/18 02:27 12/17/18 02:27 12/17/18 02:27 - Laboratory Result Diagrams: 12/16/18 22:58 12/16/18 22:58 Laboratory results interpreted by me: 12/16/18 12/16/18 12/16/18 22:58 22:58 22:58 RDW 15.1 H Plt Count 100 L Eosinophils % 10.1 H PT 16.0 H APTT 37.1 H Chloride 108 H BUN 6 L Glucose 295 H Total Bilirubin 2.7 H Direct Bilirubin 1.1 H AST 75 H ALT 73 H Alkaline Phosphatase 367 H Albumin 3.3 L Urine Glucose (UA) Urine Blood Salicylates < 1.0 L Acetaminophen < 10 L Serum Alcohol 336 H* 12/16/18 23:29 RDW Plt Count Eosinophils % PT APTT Chloride BUN Glucose Total Bilirubin Direct Bilirubin AST ALT Alkaline Phosphatase Albumin Urine Glucose (UA) >=500 H Urine Blood MODERATE H Salicylates Acetaminophen Serum Alcohol Discharge - Discharge Clinical Impression: Alcohol intoxication, Alcohol abuse Condition: Stable Disposition: HOME, SELF-CARE Instructions: Chronic Alcoholism ([facility]) Additional Instructions: Try to quit drinking. Follow-up with your doctor this week. Return to the emergency department for worsening or new concerning symptoms.
[2018-12-17 09:14] VITALS: BP 114/76
== END 2018-12-17 09:48 | disposition home or self-care (01) ==
LOC: ER 21:17
DX: F10.129 Alcohol abuse with intoxication, unspecified (principal); I10 Essential (primary) hypertension; E11.9 Type 2 diabetes mellitus without complications
CPT/HCPCS: 36415; 70450; 80053; 80307; 81001; 83690; 85025; 85610; 85730; 99284

== ENCOUNTER 2018-12-17 18:42 | Emergency (ER) | payer SELFPAY ==
--- NOTE | 2018-12-17 20:14 | ER Document Report ---
ED Fall - General Chief Complaint: Fall Stated Complaint: FALL/HEAD INJURY Time Seen by Provider: 12/17/18 20:14 Mode of Arrival: Ambulatory Information source: Patient, Emergency Med Personnel Notes: HISTORY OF PRESENT ILLNESS: Patient is a 53-year-old male with a past medical history of chronic alcoholism who presents with reported head injury after being found intoxicated by police. Please report the patient was seen falling off a street bench and landing on his head, they responded and the patient was intoxicated and belligerent, they are unsure of loss of consciousness. Patient is heavily intoxicated and is unable to give information. Onset: Prior to arrival Provocation: Alcohol intoxication Quality: Aching Radiation: None Severity: Moderate to severe Timing: Constant SI/HI: None Hallucinations: None Current therapist: None Current treatment: None REVIEW OF SYSTEMS: CONSTITUTIONAL : Denies fever or chills, no sweats. Denies recent illness. EENT: Denies eye, ear, throat, or mouth pain or symptoms. Denies nasal or sinus congestion. CARDIOVASCULAR: Denies chest pain. RESPIRATORY: Denies cough, cold, or chest congestion. Denies shortness of breath, difficulty breathing, or wheezing. GASTROINTESTINAL: Denies abdominal pain. Denies nausea, vomiting, or diarrhea. Denies constipation. GENITOURINARY: Denies difficulty urinating, painful urination, burning, fr equency, or blood in urine. MUSCULOSKELETAL: Denies neck or back pain or joint pain or swelling. SKIN: Denies rash or skin lesions. HEMATOLOGIC : Denies easy bruising or bleeding. LYMPHATIC: Denies swollen, enlarged glands. NEUROLOGICAL: Denies altered mental status or loss of consciousness. Denies headache. Denies weakness or paralysis or loss of use of either side. Denies problems with gait or speech. Denies sensory or motor loss. PSYCHIATRIC: Denies suicidal/homocidal thoughts. Denies anxiety or stress or depression. All other systems reviewed and negative. PHYSICAL EXAMINATION: GENERAL: Heavily intoxicated-appearing, well-nourished and in no acute distress. HEAD: Atraumatic, normocephalic. No scalp deformity, depression, or crepitance. EYES: Pupils are 3 mm and equal/round/reactive to light, extraocular movements intact, sclera anicteric, conjunctiva are normal. ENT: Nares patent bilaterally, oropharynx clear without exudates or palatal petechia. Moist mucous membranes. No tonsil hypertrophy. NECK: Normal range of motion, supple without lymphadenopathy. LUNGS: Breath sounds present, equal, and clear to auscultation bilaterally. No wheezes, rales, or rhonchi. HEART: Regular rate and rhythm without murmurs, rubs, or gallops. 2+ peripheral pulses. Normal capillary refill. ABDOMEN: Soft, nontender, nondistended. Normoactive bowel sounds. No guarding, no rebound. No masses appreciated. BACK: Normal contour, no midline tenderness. Rectal exam deferred. PELVC: Deferred. EXTREMITIES: Normal range of motion, no pitting or edema. No cyanosis. NEUROLOGICAL: No focal neurological deficits. Moves all extremities spontaneously and on command. PSYCH: Normal mood, normal affect. No suicidal thoughts/ideations. No homocidal thoughts/ideations. No hallucinations. SKIN: Warm, dry, normal turgor, no rashes or lesions noted. ASSESSMENT AND PLAN: This patient is a 53-year-old male who presents with acute on chronic alcohol intoxication without physical exam findings to support traumatic injury. 1. Will obtain CT scans of the head/cervical spine and reassess. 2. Will observe the patient until clinically sober. TRAVEL OUTSIDE OF THE [place] IN LAST 30 DAYS: No - Related data Allergies/Adverse Reactions: quetiapine [From Seroquel] Allergy (Verified 12/17/18 07:31) Past Medical History - General Information source: Patient - Social History Smoking Status: Smoker,Current Status Unk Chew tobacco use (# tins/day): No Frequency of alcohol use: Heavy Drug Abuse: None Lives with: Family Family History: Reviewed & Not Pertinent Patient has suicidal ideation: No Patient has homicidal ideation: No - Past Medical History Cardiac Medical History: Reports: Hx Hypertension Pulmonary Medical History: Reports: None EENT Medical History: Reports: None Neurological Medical History: Reports: None Endocrine Medical History: Reports: Hx Diabetes Mellitus Type 2 Renal/ Medical History: Reports: None. Denies: Hx Peritoneal Dialysis Malignancy Medical History: Reports None GI Medical History: Reports: None Musculoskeletal Medical History: Reports None Skin Medical History: Reports None Psychiatric Medical History: Reports: Hx Depression Traumatic Medical History: Reports: None Infectious Medical History: Reports: None Past Surgical History: Reports: Hx Abdominal Surgery, Hx Orthopedic Surgery - Knee - Immunizations Immunizations up to date: Yes Hx Diphtheria, Pertussis, Tetanus Vaccination: Yes History of Influenza Vaccine for 07/2017 - 12/2017 Season: Unknown Physical Exam - Vital signs Vitals: Resp 16 12/17/18 19:29 Course - Re-evaluation Re-evalutation: 12/18/18 03:09 Patient is clinically sober. He will be discharged with return precautions and follow-up as needed. Patient voices both understanding and agreeing with the plan. - Vital Signs Vital signs: Temp Pulse Resp BP Pulse Ox 97.9 F 98 17 111/66 95 12/18/18 03:37 12/18/18 03:37 12/18/18 03:37 12/18/18 03:37 12/18/18 03:37 - Diagnostic Test Radiology reviewed: Image reviewed, Reports reviewed Discharge - Discharge Clinical Impression: Chronic alcohol abuse Condition: Good Disposition: HOME, SELF-CARE Instructions: Chronic Alcoholism ([facility]) Additional Instructions: You have been evaluated in the Emergency Department for alcohol intoxication. While here, you had CT scans of the head and neck that were normal and it is now safe to be discharged home. Please follow-up with your primary physician as instructed in 1 week to be rechecked. Please note that chronic alcoholism causes not only liver failure but can predispose you to recurrent falling which could result in head injuries and bleeding in your head. Return to the Emergency Department if you experience trouble walking, vision changes, confusion/disorientation, memory problems, or any other concerning symptoms. Print Language: Monegasque
--- NOTE | 2018-12-17 20:50 | RADIOLOGY REPORT (SQ) ---
EXAM DESCRIPTION: CT HEAD WITHOUT IV CONTRAST COMPLETED DATE/TME: 12/17/2018 00:00 CLINICAL HISTORY: 53 years, Male, fall This exam was performed according to our departmental dose-optimization program which includes automated exposure control, adjustment of the mA and/or kVp according to patient size and/or use of iterative reconstruction technique where applicable. FINDINGS: No acute intracranial hemorrhage, mass effect or midline shift. No extra-axial fluid collections. Ventricles and subarachnoid spaces are mildly dilated consistent with cerebral atrophy. [place]-white matter differentiation is preserved. Visualized paranasal sinuses demonstrate extensive mucosal thickening in the ethmoid air cells and nasal cavities. Mild mucosal thickening in the maxillary and sphenoid sinuses. The mastoid air cells are clear. The skull is intact. No air-fluid levels in the sinuses. IMPRESSION: No acute intracranial hemorrhage. Moderate pansinusitis.
--- NOTE | 2018-12-17 20:51 | RADIOLOGY REPORT (SQ) ---
EXAM DESCRIPTION: CT CERVICAL SPINE WITHOUT IV CONTRAST COMPLETED DATE/TME: 12/17/2018 00:00 CLINICAL HISTORY: 53 years, Male, fall This exam was performed according to our departmental dose-optimization program which includes automated exposure control, adjustment of the mA and/or kVp according to patient size and/or use of iterative reconstruction technique where applicable. FINDINGS: Vertebral body heights are intact. Alignment is intact. No subluxation. Moderate degenerative changes at C3-4. Moderate degenerative changes at C5-6 and C6-7. No significant prevertebral soft tissue swelling. The facets are normally aligned. Odontoid process is intact. IMPRESSION: No fracture or subluxation. Moderate degenerative changes.
[2018-12-18 03:43] VITALS: BP 111/66
== END 2018-12-18 03:43 | disposition home or self-care (01) ==
LOC: ER 18:42
DX: F10.229 Alcohol dependence with intoxication, unspecified (principal); I10 Essential (primary) hypertension; E11.9 Type 2 diabetes mellitus without complications; Z88.8 Allergy status to other drugs, medicaments and biological substances
CPT/HCPCS: 36415; 70450; 72125; 80307; 99284

== ENCOUNTER 2019-01-02 08:04 | Emergency (ER) | payer SELFPAY ==
[2019-01-02] MEDS ORDERED: MAG HYDROX/AL HYDROX/SIMETH SUSP 30 ML UDCUP PO ONE (08:40)
[2019-01-02] MEDS ORDERED: METOCLOPRAMIDE HCL ORAL SOLN 10 MG/10 ML UDCUP PO ONE (08:40)
[2019-01-02] MEDS ORDERED: LIDOCAINE 2% VISCOUS SOLN 20 ML UDCUP PO ONE (08:41)
[2019-01-02 08:52] LABS: INTERNATIONAL RATION (INR) 1.26; PROTHROMBIN TIME 16.4 SEC (11.4-15.4)
[2019-01-02 09:02] LABS: ABSOLUTE EOSINOPHILS # (AUTO) 0.2 10^3/uL (0.0-0.6); ABSOLUTE LYMPHOCYTES (AUTO) 0.8 10^3/uL (0.5-4.7); ABSOLUTE MONOCYTES (AUTO) 0.4 10^3/uL (0.1-1.4); ABSOLUTE NEUT (AUTO) 1.4 10^3/uL (1.7-8.2); EOSINOPHILS % (AUTO) 7.1 % (0-6); HEMATOCRIT 40.9 % (37.9-51.0); HEMOGLOBIN 14.1 g/dL (13.5-17.0); LYMPHOCYTES % (AUTO) 28.3 % (13-45); MEAN CORPUSCULAR HEMOGLOBIN 31.7 pg (27.0-33.4); MEAN CORPUSCULAR HGB CONC 34.4 g/dL (32.0-36.0); MEAN CORPUSCULAR VOLUME 92 fl (80-97); MONOCYTES % (AUTO) 13.3 % (3-13); RED BLOOD COUNT 4.45 10^6/uL (4.35-5.55); RED CELL DISTRIBUTION WIDTH 14.7 % (11.5-14.0); SEGMENTED NEUTROPHILS % (AUTO) 50.3 % (42-78); TOTAL CELLS COUNTED % (AUTO) 100 %; WHITE BLOOD COUNT 2.8 10^3/uL (4.0-10.5)
[2019-01-02 09:03] LABS: ALANINE AMINOTRANSFERASE 88 U/L (21-72); ALBUMIN 2.9 g/dL (3.5-5.0); ALCOHOL 113 mg/dL (NONE DETECTED); ALKALINE PHOSPHATASE 280 U/L (38-126); ANION GAP 7 (5-19); ASPARTATE AMINO TRANSFERASE 77 U/L (17-59); BILIRUBIN,DIRECT 0.9 mg/dL (0.0-0.4); BILIRUBIN,TOTAL 2.6 mg/dL (0.2-1.3); BLOOD UREA NITROGEN 6 mg/dL (7-20); CALCIUM 8.9 mg/dL (8.4-10.2); CARBON DIOXIDE 28 mmol/L (22-30); CHLORIDE 105 mmol/L (98-107); CREATINE KINASE 212 U/L (55-170); GLUCOSE 335 mg/dL (75-110); LIPASE 179.7 U/L (23-300); POTASSIUM 3.7 mmol/L (3.6-5.0); SODIUM 139.8 mmol/L (137-145); TOTAL PROTEIN 6.6 g/dL (6.3-8.2)
[2019-01-02 09:05] LABS: APPEARANCE,URINE CLEAR; BILIRUBIN,URINE NEGATIVE (NEGATIVE); COLOR,URINE YELLOW; GLUCOSE, URINE >=500 mg/dL (NEGATIVE); KETONES,URINE NEGATIVE (NEGATIVE); LEUKOCYTE ESTERASE,URINE NEGATIVE (NEGATIVE); NITRITE,URINE NEGATIVE (NEGATIVE); PROTEIN,URINE NEGATIVE (NEGATIVE); URINE SPECIFIC GRAVITY 1.024
[2019-01-02 09:13] LABS: CREATINE KINASE MB 4.04 ng/mL (<4.55); TROPONIN I 0.018 ng/mL
[2019-01-02 09:29] LABS: URINE AMPHETAMINES SCREEN NEGATIVE; URINE BARBITURATES SCREEN NEGATIVE; URINE BENZODIAZEPINES SCREEN NEGATIVE; URINE COCAINE SCREEN UNCONFIRMED POSITIVE; URINE MARIJUANA (THC) SCREEN NEGATIVE; URINE METHADONE SCREEN NEGATIVE; URINE PHENCYCLIDINE SCREEN NEGATIVE
[2019-01-02 09:33] LABS: PLATELET COUNT 91 10^3/uL (150-450)
--- NOTE | 2019-01-02 09:45 | RADIOLOGY REPORT (SQ) ---
EXAM DESCRIPTION: CHEST SINGLE VIEW COMPLETED DATE/TIME: 01/02/2019 8:52 am REASON FOR STUDY: sob COMPARISON: None. EXAM PARAMETERS: NUMBER OF VIEWS: One view. TECHNIQUE: Single frontal radiographic view of the chest acquired. RADIATION DOSE: NA LIMITATIONS: None. FINDINGS: LUNGS AND PLEURA: No opacities, masses or pneumothorax. No pleural effusion. MEDIASTINUM AND HILAR STRUCTURES: No masses. Contour normal. HEART AND VASCULAR STRUCTURES: Heart normal in size. Normal vasculature. BONES: No acute findings. HARDWARE: None in the chest. OTHER: No other significant finding. IMPRESSION: NO ACUTE RADIOGRAPHIC FINDING IN THE CHEST. TECHNICAL DOCUMENTATION: JOB ID: [id number] [employer]- All Rights Reserved Reading location - IP/workstation name: [email or web address]
[2019-01-02] MEDS ORDERED: NORMAL SALINE 1000 ML 1,000 ML IV ONE ×2 (10:08→11:57)
[2019-01-02] MEDS ORDERED: DILTIAZEM HCL INJ 25 MG/5 ML VIAL IV ONE ×2 (11:09→11:49)
--- NOTE | 2019-01-02 11:17 | RADIOLOGY REPORT (SQ) ---
EXAM DESCRIPTION: CTA CHEST COMPLETED DATE/TIME: 01/02/2019 11:10 am REASON FOR STUDY: elevated ddimer COMPARISON: None. TECHNIQUE: CT scan of the chest performed using helical scanning technique with dynamic intravenous contrast injection. Images reviewed with lung, soft tissue and bone windows. Reconstructed coronal and sagittal MPR images reviewed. Additional 3 dimensional post-processing performed to develop Maximal Intensity Projection images (MO P). All images stored on PACS. All CT scanners at this facility use dose modulation, iterative reconstruction, and/or weight based d osing when appropriate to reduce radiation dose to as low as reasonably achievable (ALARA). [facility]: Dose Right [facility]: CareDose [facility]: Dose Right [facility]: Teradose 4D [facility]: NodePrime CONTRAST TYPE AND DOSE: contrast/concentration: Isovue 350.00 mg/ml; Total Contrast Delivered: 83.0 ml; Total Saline Delivered: 90.0 ml Contrast bolus optimized for the pulmonary arteries. Not diagnostic for the aorta. RENAL FUNCTION: GFR > 60. RADIATION DOSE: CT Rad equipment meets quality standard of care and radiation dose reduction techniq ues were employed. CTDIvol: 19.8 - 22.0 mGy. DLP: 847 mGy-cm. . LIMITATIONS: Timing of contrast bolus. FINDINGS: LUNGS AND PLEURA: No masses, infiltrates, or pneumothorax. No pleural effusions or pleura l calcifications. AORTA AND GREAT VESSELS: No aneurysm. Contrast bolus not optimized for the aorta. HEART: No pericardial effusion. Mild coronary artery calcifications. PULMONARY ARTERIES: No emboli visualized in the main pulmonary arteries or the segmental branches. HILAR AND MEDIASTINAL STRUCTURES: No identified masses or abnormal nodes. HARDWARE: None in the chest. UPPER ABDOMEN: Cirrhosis. Splenomegaly. Portal hypertension. Cholelithiasis. Limited exam. THYROID AND OTHER SOFT TISSUES: No masses. No adenopathy. BONES: No acute or significant finding. 3D MIPS: Confirm above findings. OTHER: No other significant finding. IMPRESSION: No PE. Cirrhosis. Portal hypertension. No ascites. COMMENT: Quality ID # [id number]: Final reports with documentation of one or more dose reduction techniques (e.g., Automated exposure control, adjustment of the mA and/or kV according to patient size, use of iterative reconstruction technique) TECHNICAL DOCUMENTATION: JOB ID: [id number] [employer]- All Rights Reserved Reading location - IP/workstation name: [email or web address]
[2019-01-02] MEDS ORDERED: LIDOCAINE 5% (700 MG) TRANSDERMAL ADH..PATCH TP ONE (13:40)
--- NOTE | 2019-01-02 13:41 | ER Document Report ---
ED General - General Chief Complaint: Chest Pain Stated Complaint: CHEST PAIN Time Seen by Provider: 01/02/19 08:20 TRAVEL OUTSIDE OF THE [place] IN LAST 30 DAYS: No - HPI Patient complains to provider of: Anterior chest pain Notes: Patient coming in for evaluation of chest pain. Patient has a history of alcohol abuse and also cocaine abuse. Patient denies any recent cocaine abuse. Patient otherwise resting comfortable on my evaluation states chest pain is anterior no radiation. Denies any fevers chills nausea vomiting diarrhea. A brief review of the patient's past medical records available in [facility] was performed - Related Data Allergies/Adverse Reactions: quetiapine [From Seroquel] Allergy (Verified 01/02/19 09:01) Past Medical History - Social History Smoking Status: Never Smoker Chew tobacco use (# tins/day): No Frequency of alcohol use: Heavy Family History: Reviewed & Not Pertinent Patient has suicidal ideation: No Patient has homicidal ideation: No - Past Medical History Cardiac Medical History: Reports: Hx Hypertension Endocrine Medical History: Reports: Hx Diabetes Mellitus Type 2 Renal/ Medical History: Denies: Hx Peritoneal Dialysis Psychiatric Medical History: Reports: Hx Depression Past Surgical History: Reports: Hx Abdominal Surgery, Hx Orthopedic Surgery - Knee - Immunizations Immunizations up to date: Yes Hx Diphtheria, Pertussis, Tetanus Vaccination: Yes Review of Systems - Review of Systems Constitutional: No symptoms reported EENT: No symptoms reported Cardiovascular: Chest pain Respiratory: No symptoms reported Gastrointestinal: No symptoms reported Genitourinary: No symptoms reported Male Genitourinary: No symptoms reported Musculoskeletal: No symptoms reported Skin: No symptoms reported Hematologic/Lymphatic: No symptoms reported Neurological/Psychological: No symptoms reported Physical Exam - Vital signs Vitals: Temp Pulse BP Pulse Ox 97.5 F 106 H 139/84 H 100 01/02/19 08:16 01/02/19 08:16 01/02/19 08:16 01/02/19 08:16 Interpretation: Normal - General General appearance: Appears well, Alert - HEENT Head: Normocephalic, Atraumatic Eyes: Normal Pupils: PERRL - Respiratory Respiratory status: No respiratory distress Chest status: Nontender Breath sounds: Normal Chest palpation: Normal - Cardiovascular Rhythm: Regular Heart sounds: Normal auscultation Murmur: No - Abdominal Inspection: Normal Distension: No distension Bowel sounds: Normal Tenderness: Nontender Organomegaly: No organomegaly - Back Back: Normal, Nontender - Extremities General upper extremity: Normal inspection, Nontender, Normal color, Normal ROM, Normal temperature General lower extremity: Normal inspection, Nontender, Normal color, Normal ROM, Normal temperature, Normal weight bearing. No: Figueroa's sign - Neurological Neuro grossly intact: Yes Cognition: Normal Orientation: AAOx4 Veteran Coma Scale Eye Opening: Spontaneous [place] Coma Scale Verbal: Oriented Veteran Coma Scale Motor: Obeys Commands Veteran Coma Scale Total: 15 Speech: Normal Motor strength normal: LUE, RUE, LLE, RLE Sensory: Normal - Psychological Associated symptoms: Normal affect, Normal mood - Skin Skin Temperature: Warm Skin Moisture: Dry Skin Color: Normal Course - Re-evaluation Re-evalutation: 01/23/19 11:42 The patient has atypical chest pain as the patient's chest pain is not suggestive of pulmonary embolus, cardiac ischemia, aortic dissection, or other serious etiology. Given the extremely low risk of these diagnoses further testing and evaluation for these possibilities does not appear to be indicated at this time. The patient has been instructed to return if the symptoms worsen or change in any way. - Vital Signs Vital signs: Temp Pulse Resp BP Pulse Ox 98.7 F 106 H 19 128/94 H 97 01/02/19 13:30 01/02/19 08:16 01/02/19 12:21 01/02/19 13:30 01/02/19 13:30 - Laboratory Result Diagrams: 01/02/19 08:30 01/02/19 08:30 Laboratory results interpreted by me: 01/02/19 01/02/19 01/02/19 08:30 08:30 08:30 WBC 2.8 L RDW 14.7 H Plt Count 91 L Monocytes % 13.3 H Eosinophils % 7.1 H Absolute Neutrophils 1.4 L PT 16.4 H D-Dimer BUN 6 L Glucose 335 H Total Bilirubin 2.6 H Direct Bilirubin 0.9 H AST 77 H ALT 88 H Alkaline Phosphatase 280 H Creatine Kinase 212 H Albumin 2.9 L Urine Glucose (UA) Urine Blood Urine Urobilinogen 01/02/19 01/02/19 08:30 08:30 WBC RDW Plt Count Monocytes % Eosinophils % Absolute Neutrophils PT D-Dimer 0.57 H BUN Glucose Total Bilirubin Direct Bilirubin AST ALT Alkaline Phosphatase Creatine Kinase Albumin Urine Glucose (UA) >=500 H Urine Blood MODERATE H Urine Urobilinogen 2.0 H Discharge - Discharge Clinical Impression: Alcoholism, Chest wall pain, Rib contusion Condition: Good Disposition: HOME, SELF-CARE Instructions: Chest Wall Pain ([facility]) Additional Instructions: Please follow-up with your primary care physician for further evaluation return to the ER for worsening of symptoms
[2019-01-02 13:57] VITALS: BP 128/94
--- NOTE | 2019-01-02 20:52 | EKG REPORT ---
SEVERITY:- ABNORMAL ECG - SINUS RHYTHM PROBABLE LEFT ATRIAL ABNORMALITY LEFT BUNDLE BRANCH BLOCK : Confirmed by: Kristen De Leon MD 02-Jan-2019 20:51:32
--- NOTE | 2019-01-02 20:52 | EKG REPORT ---
SEVERITY:- ABNORMAL ECG - SINUS OR ECTOPIC ATRIAL TACHYCARDIA LEFT BUNDLE BRANCH BLOCK : Confirmed by: Kristen De Leon MD 02-Jan-2019 20:51:40
== END 2019-01-02 14:10 | disposition home or self-care (01) ==
LOC: ER 08:04
DX: S20.20XA Contusion of thorax, unspecified, initial encounter (principal); X58.XXXA Exposure to other specified factors, initial encounter; R07.89 Other chest pain; F10.20 Alcohol dependence, uncomplicated; I10 Essential (primary) hypertension; E11.9 Type 2 diabetes mellitus without complications; Z88.8 Allergy status to other drugs, medicaments and biological substances
CPT/HCPCS: 93005; 96376; 99284; 96361; 96374; 36415; 82553; 80307 ×2; 82550; 83690; 83735; 85025; 85610; 80053; 81001; 84484; 85379; 71045; 71275; 93010; J3490 ×2; J7030